=== PATIENT | male | born 1935 | race Caucasian/White ===

== ENCOUNTER 2017-08-10 12:50 | Emergency (ER) | payer MEDICARE, BC ==
[2017-08-10] MEDS ORDERED: HYDROmorphone 0.5 MG/0.5 ML Syringe IVPUSH ONE (13:24)
--- NOTE | 2017-08-10 13:53 | CT ---
Clinical history: 82-year-old male injured (fall shoveling snow). Right hip pain. Interpretation: Volume acquisition of data emergency unenhanced CT scan of the pelvis both hips and p roximal femurs obtained without oral or IV contrast were patient was lying supine on the Siemens mult i slice scanner [place], [place]. All data archived in the PACS system for storage, reformatting axial/sagittal/coronal planes and study. Interpretation: Comminuted, infratrochanteric, proximal diaphyseal fracture right femoral shaft with.... mild impaction and angulation deformity but satisfactory apposition and near anatomic alignment. No sign of other pelvic or contralateral left hip fracture. Symmetric spacing normal-appearing SI and hip joints (no hip dislocation). Dense atheromatous calcifications normal caliber distal abdominal aorta and common iliac arteries. No foreign bodies. CONCLUSION: Acute fracture proximal right femur.
[2017-08-10 14:11] LABS: CHLORIDE,CL 106 mmol/L (101-111); SODIUM,NA 141 mmol/L (135-145)
[2017-08-10] MEDS ORDERED: Ondansetron 4 MG/2 ML SDV IV ONE (14:34)
[2017-08-10] MEDS ORDERED: Morphine 2 MG/ML Syringe IVPUSH ONE (14:34)
--- NOTE | 2017-08-10 17:17 | EDM.PDOC ---
Scribed by Augusta Delgado 08/10/17 [id number] for Falguni Michel NP ED HPI GENERAL MEDICAL PROBLEM - General Chief Complaint: Trauma Stated Complaint: [id number] FELL BROKEN HIP IN BY AMBULANCE Time Seen by Provider: 08/10/17 13:12 Source of Information: Reports: Patient, EMS, EMS Notes Reviewed, RN, RN Notes Reviewed History Limitations: Reports: No Limitations - History of Present Illness INITIAL COMMENTS - FREE TEXT/NARRATIVE: Patient presents to ER with [facility] with complaint of fall while pushing snow. States he fell on the right hip. Patient denies hitting his head or losing consciousness. Admits to pain only in right hip. He rates pain a 10/20. Onset: Today Duration: Constant Location: Reports: Lower Extremity, Right Quality: Reports: Ache Severity: Moderate Improves with: Reports: None Worsens with: Reports: None Associated Symptoms: Reports: No Other Symptoms - Related Data Allergies Allergy/AdvReac Type Severity Reaction Status Date / Time No Known Allergies Allergy Verified 03/29/14 10:32 Home Meds: Home Meds Acetaminophen [Arthritis Pain Relief] 1 tab PO ASDIRECTED PRN 08/10/17 [History] Albuterol [Proair HFA] 2 puff INH Q4H PRN 08/10/17 [History] Carvedilol 1.5 tab PO BID 08/10/17 [History] Cholecalciferol (Vitamin D3) [Vitamin D3] 2 cap PO BEDTIME 08/10/17 [History] Docusate Sodium [Colace] 1 cap PO DAILY PRN 08/10/17 [History] Folic Acid 1 tab PO DAILY 08/10/17 [History] Furosemide 1 tab PO DAILY 08/10/17 [History] LORazepam 1 tab PO Q6H PRN 08/10/17 [History] Lisinopril 1 tab PO DAILY 08/10/17 [History] Lutein/Min/Vit C/Vit E Acetate [Ocuvite Lutein] 1 cap PO BEDTIME 08/10/17 [ History] Methotrexate Sodium [Methotrexate] 3 tab PO WEEKLY 08/10/17 [History] Simvastatin [Zocor] 1 tab PO BEDTIME 08/10/17 [History] Warfarin Sodium 1.25 mg PO BEDTIME 08/10/17 [History] amLODIPine [Norvasc] 1 tab PO DAILY 08/10/17 [History] Review of Systems - Review of Systems Review Of Systems: ROS reveals no pertinent complaints other than HPI. ED EXAM, GENERAL - Physical Exam Exam: See Below Exam Limited By: No Limitations General Appearance: Alert, WD/WN, No Apparent Distress Eye Exam: Bilateral Eye: Normal Inspection Ears: Normal External Exam, Normal Canal, Hearing Grossly Normal, Normal TMs Nose: Normal Inspection, Normal Mucosa, No Blood Throat/Mouth: Normal Inspection, Normal Lips, Normal Teeth, Normal Gums, Normal Oropharynx, Normal Voice, No Airway Compromise Head: Atraumatic, Normocephalic Neck: Normal Inspection, Supple, Non-Tender, Full Range of Motion Respiratory/Chest: Other (right lung diminished) Cardiovascular: Normal Peripheral Pulses, Regular Rate, Rhythm, No Edema, No Gallop, No JVD, No Murmur, No Rub GI/Abdominal: Normal Bowel Sounds, Soft, Non-Tender, No Organomegaly, No Distention, No Abnormal Bruit, No Mass (Male) Exam: Deferred Rectal (Males) Exam: Deferred Back Exam: Normal Inspection, Full Range of Motion, NT Extremities: Other (right leg tender. Limited range of motion. ) Psychiatric: Normal Affect, Normal Mood Skin Exam: Warm, Dry, Intact, Normal Color, No Rash Lymphatic: No Adenopathy Course - Vital Signs Last Recorded V/S: Last Vital Signs Temp 98.1 F 08/10/17 12:55 Pulse 51 L 08/10/17 12:55 Resp 18 08/10/17 12:55 BP 183/86 H 08/10/17 12:55 Pulse Ox 100 08/10/17 12:55 - Orders/Labs/Meds Orders: Active Orders 24 hr Category Date Time Status UA W/MICROSCOPIC [URIN] Stat Lab 08/10/17 15:30 Ordered Labs: Laboratory Tests 08/10/17 08/10/17 08/10/17 Range/Units 13:35 13:35 13:35 WBC 5.8 (5.0-10.0) 10^3/uL RBC 4.29 L (4.6-6.2) 10^6/uL Hgb 11.3 L (14.0-18.0) g/dL Hct 35.6 L (40.0-54.0) % MCV 83.0 (80-100) fL MCH 26.3 L (27.0-34.0) pg MCHC 31.7 L (33.0-35.0) g/dL Plt Count 301 (150-450) 10^3/uL Neut % (Auto) 43.5 (42.2-75.2) % Lymph % (Auto) 33.8 (20.5-50.1) % [place] % (Auto) 11.3 H (2-8) % Eos % (Auto) 11.1 H (1.0-3.0) % Baso % (Auto) 0.3 (0.0-1.0) % PT 18.3 H (9.0-12.0) SEC INR 1.8 H (0.9-1.2) Sodium 141 (135-145) mmol/L Potassium 4.3 (3.6-5.0) mmol/L Chloride 106 (101-111) mmol/L Carbon Dioxide 27.0 (21.0-31.0) mmol/L Anion Gap 12.3 BUN 18 (7-18) mg/dL Creatinine 1.2 (0.6-1.3) mg/dL Est Cr Clr Drug Dosing TNP Estimated GFR (MDRD) 58 BUN/Creatinine Ratio 15.00 Glucose 106 H (74-105) mg/dL Calcium 8.8 (8.4-10.2) mg/dl Total Bilirubin 0.5 (0.2-1.0) mg/dL AST 21 (10-42) IU/L ALT 14 (10-60) IU/L Alkaline Phosphatase 55 (42-121) IU/L Total Protein 6.7 (6.7-8.2) g/dl Albumin 3.6 (3.2-5.5) g/dl Globulin 3.1 Albumin/Globulin Ratio 1.16 Urine Color (YELLOW) Urine Appearance (CLEAR) Urine pH (5.0-9.0) Ur Specific [place] (1.005-1.030) Urine Protein (NEGATIVE) Urine Glucose (UA) (NEGATIVE) Urine Ketones (NEGATIVE) Urine Occult Blood (NEGATIVE) Urine Nitrite (NEGATIVE) Urine Bilirubin (NEGATIVE) Urine Urobilinogen (0.2-1.0) mg/dL Ur Leukocyte Esterase (NEGATIVE) Urine RBC /HPF Urine WBC (0-5/HPF) /HPF Ur Epithelial Cells /HPF Urine Bacteria (0-FEW/HPF) /HPF Hyaline Casts /LPF 08/10/17 Range/Units 15:30 WBC (5.0-10.0) 10^3/uL RBC (4.6-6.2) 10^6/uL Hgb (14.0-18.0) g/dL Hct (40.0-54.0) % MCV (80-100) fL MCH (27.0-34.0) pg MCHC (33.0-35.0) g/dL Plt Count (150-450) 10^3/uL Neut % (Auto) (42.2-75.2) % Lymph % (Auto) (20.5-50.1) % [place] % (Auto) (2-8) % Eos % (Auto) (1.0-3.0) % Baso % (Auto) (0.0-1.0) % PT (9.0-12.0) SEC INR (0.9-1.2) Sodium (135-145) mmol/L Potassium (3.6-5.0) mmol/L Chloride (101-111) mmol/L Carbon Dioxide (21.0-31.0) mmol/L Anion Gap BUN (7-18) mg/dL Creatinine (0.6-1.3) mg/dL Est Cr Clr Drug Dosing Estimated GFR (MDRD) BUN/Creatinine Ratio Glucose (74-105) mg/dL Calcium (8.4-10.2) mg/dl Total Bilirubin (0.2-1.0) mg/dL AST (10-42) IU/L ALT (10-60) IU/L Alkaline Phosphatase (42-121) IU/L Total Protein (6.7-8.2) g/dl Albumin (3.2-5.5) g/dl Globulin Albumin/Globulin Ratio Urine Color Yellow (YELLOW) Urine Appearance Slightly cloudy (CLEAR) Urine pH 7.0 (5.0-9.0) Ur Specific [place] 1.015 (1.005-1.030) Urine Protein Negative (NEGATIVE) Urine Glucose (UA) Negative (NEGATIVE) Urine Ketones Negative (NEGATIVE) Urine Occult Blood Negative (NEGATIVE) Urine Nitrite Negative (NEGATIVE) Urine Bilirubin Negative (NEGATIVE) Urine Urobilinogen 0.2 (0.2-1.0) mg/dL Ur Leukocyte Esterase Negative (NEGATIVE) Urine RBC 0-5 /HPF Urine WBC 0-5 (0-5/HPF) /HPF Ur Epithelial Cells Many H /HPF Urine Bacteria Few (0-FEW/HPF) /HPF Hyaline Casts Few H /LPF Meds: Medications Discontinued Medications Generic Name Dose Route Start Last Admin Trade Name Tristianq PRN Reason Stop Dose Admin Hydromorphone HCl 0.5 mg 08/10/17 13:24 08/10/17 13:37 Dilaudid IVPUSH 08/10/17 13:25 0.5 mg ONETIME ONE Administration Morphine Sulfate 2 mg 08/10/17 14:34 08/10/17 14:48 Morphine IVPUSH 08/10/17 14:35 2 mg ONETIME ONE Administration Ondansetron HCl 4 mg 08/10/17 14:34 08/10/17 14:48 Zofran IV 08/10/17 14:35 4 mg ONETIME ONE Administration - Radiology Interpretation Free Text/Narrative:: CT pelvis: Acute fracture proximal right femur. See rad report. - Re-Assessments/Exams Free Text/Narrative Re-Assessment/Exam: 08/10/17 17:14 One Call from [employer] called and states that Dr. Magaña would accept the patient, but that he is in the OR at this time. Departure - Departure Time of Disposition: 15:15 Disposition: DC/Tfer to [facility] 02 Condition: Fair Clinical Impression: Fracture of right femur Qualifiers: Encounter type: initial encounter Femur location: unspecified portion of femur Fracture type: closed Fracture morphology: unspecified fracture morphology Qualified Code(s): S72.91XA - Unspecified fracture of right femur, initial encounter for closed fracture - Discharge Information Referrals: PCP,None [Primary Care Provider] - Forms: ED Department Discharge, Interfacility Transfer EMTALA - My Orders Last 24 Hours: My Active Orders 08/10/17 15:30 UA W/MICROSCOPIC [URIN] Stat - Assessment/Plan Last 24 Hours: My Active Orders 08/10/17 15:30 UA W/MICROSCOPIC [URIN] Stat I have read and agree with the documentation that has been completed regarding this visit. By signing this record, I attest that the documentation was completed in my physical presence and is an accurate record of the encounter.
== END 2017-08-10 15:32 ==
LOC: DL.ED 12:50
DX: S72.141A Displaced intertrochanteric fracture of right femur, initial encounter for closed fracture (principal); Z79.899 Other long term (current) drug therapy; W00.9XXA Unspecified fall due to ice and snow, initial encounter; Y93.29 Activity, other involving ice and snow
CPT/HCPCS: 36415; 72192; 80053; 81001; 85025; 85610; 96374; 96375; 99285; J1170; J2270; J2405; 99284

== ENCOUNTER 2017-08-14 14:22 | Inpatient (IN) | payer MEDICARE, BC ==
[2017-08-15] MEDS ORDERED: Albuterol 6.7 GM Inhaler INH PRN (15:44)
--- NOTE | 2017-08-15 15:47 | PCM.HP ---
H&P History of Present Illness - General Date of Service: 08/15/17 Admit Problem/Dx: Admission Diagnosis/Problem Admission Diagnosis/Problem Hip fracture requiring operative repair Source of Information: Patient History Limitations: Reports: No Limitations - History of Present Illness Initial Comments - Free Text/Narative: The patient is a 82 y.o.malewho was admitted at [facility] 08/10/2017 5:01 PMwith right hip fracture that he sustained after a fall. His past medical history include DVT/PE, COPD, hypertension, paroxysmal atrial fibrillation. He underwent gamma nailing on 08/11/[address] Crowell. Intraoperatively, there were no complications. Postoperatively, he worked with therapy. Patient was discharged to a swing bed for further strengthening and close orthopedic follow-up. Seen at bedside, he has no compliant. Pain is controlled at this time. Onset of Symptoms: Reports: Gradual Duration of Symptoms: Reports: Hour(s): Quality: Reports: Ache Severity: Moderate Improves with: Reports: None Worsens with: Reports: None Context: Reports: Other Associated Symptoms: Reports: No Other Symptoms - Related Data Allergies/Adverse Reactions: Allergies Allergy/AdvReac Type Severity Reaction Status Date / Time No Known Allergies Allergy Verified 08/15/17 14:07 Home Medications: Home Meds Acetaminophen [Arthritis Pain Relief] 650 mg PO Q8HR PRN 08/10/17 [History] Albuterol [Proair HFA] 2 puff INH QID PRN 08/10/17 [History] Carvedilol 18.75 mg PO BID 08/10/17 [History] Cholecalciferol (Vitamin D3) [Vitamin D3] 2,000 units PO DAILY 08/10/17 [History ] Docusate Sodium [Colace] 100 mg PO BID 08/10/17 [History] Folic Acid 1 mg PO DAILY 08/10/17 [History] Furosemide 20 mg PO DAILY 08/10/17 [History] LORazepam 0.5 mg PO Q6HR PRN 08/10/17 [History] Lisinopril 10 mg PO DAILY 08/10/17 [History] Lutein/Min/Vit C/Vit E Acetate [Ocuvite Lutein] 1 cap PO DAILY 08/10/17 [History ] Methotrexate Sodium [Methotrexate] 7.5 mg PO .Saturday08/10/17 [History] Simvastatin [Zocor] 20 mg PO DAILY 08/10/17 [History] Warfarin Sodium 1.25 mg PO DAILY 08/10/17 [History] amLODIPine [Norvasc] 2.5 mg PO DAILY 08/10/17 [History] Past Medical History HEENT History: Reports: Hard of Hearing, Impaired Vision, Other (See Below) Other HEENT History: gets shots in eyes to prevent Glaucoma. Hearing aid bilat. , mostly wears to left ear. Wears glasses Cardiovascular History: Reports: Afib, Aneurysm, Blood Clots/VTE/DVT, CAD, Heart Murmur, High Cholesterol, Hypertension, Other (See Below) Other Cardiovascular History: Thoracic Aneurysm. Hx of Clots to the lung and left leg. states he has some tingling in his feet bilaterally which was present prior to hip surgery and fall. Respiratory History: Reports: COPD, Pneumonia, Recurrent, SOB Gastrointestinal History: Reports: Other (See Below) Other Gastrointestinal History: sometimes constipation and uses MOM Genitourinary History: Reports: None Musculoskeletal History: Reports: RA Neurological History: Reports: Other (See Below) Other Neuro History: "? Slight Stroke because I'm stiff on my left side" Psychiatric History: Reports: None Endocrine/Metabolic History: Reports: None Hematologic History: Reports: Anticoagulation Therapy Immunologic History: Reports: None Oncologic (Cancer) History: Reports: Other (See Below) Other Oncologic History: skin Ca to face long time ago Dermatologic History: Reports: None - Infectious Disease History Infectious Disease History: Reports: None - Past Surgical History HEENT Surgical History: Reports: Cataract Surgery, Other (See Below) Other HEENT Surgeries/Procedures: Had bilaeral cataract surgery at age 53. Cardiovascular Surgical History: Reports: None GI Surgical History: Reports: None Male Surgical History: Reports: Circumcision, Other (See Below) Other Male Surgeries/Procedures: Circumcision on August 12 2017 Endocrine Surgical History: Reports: None Neurological Surgical History: Reports: None Musculoskeletal Surgical History: Reports: None Social & Family History - Family History Family Medical History: Noncontributory Endocrine/Metabolic: Reports: Diabetes, Gestational - Tobacco Use Smoking Status *Q: Former Smoker Used Tobacco, but Quit: Yes Month/Year Tobacco Last Used: 30 - Caffeine Use Caffeine Use: Reports: Coffee, Soda - Recreational Drug Use Recreational Drug Use: No H&P Review of Systems - Review of Systems: Review Of Systems: See Below General: Reports: No Symptoms HEENT: Reports: No Symptoms Pulmonary: Reports: No Symptoms Cardiovascular: Reports: No Symptoms Gastrointestinal: Reports: No Symptoms Genitourinary: Reports: No Symptoms Musculoskeletal: Reports: No Symptoms Skin: Reports: No Symptoms Psychiatric: Reports: No Symptoms Neurological: Reports: No Symptoms Hematologic/Lymphatic: Reports: No Symptoms Immunologic: Reports: No Symptoms Exam - Exam Exam: See Below - Vital Signs Vital Signs: Last Vital Signs Temp 98 F 08/15/17 13:50 Pulse 81 08/15/17 13:50 Resp 20 08/15/17 13:50 BP 131/79 08/15/17 13:50 Pulse Ox 96 08/15/17 13:50 Weight: 199 lb - Exam Quality Assessment: Other General: Alert, Oriented, 4 HEENT: PERRLA, Hearing Intact, Mucosa Moist & [place], Nares Patent, Normal Nasal Septum, Posterior Pharynx Clear, Conjunctiva Clear, EOMI, EACs Clear, TMs Clear Neck: Supple, Trachea Midline, 2 Lungs: Clear to Auscultation, Normal Respiratory Effort Cardiovascular: Regular Rate, Regular Rhythm GI/Abdominal Exam: Normal Bowel Sounds, Soft, Non-Tender, No Organomegaly, No Distention, No Abnormal Bruit, No Mass, Pelvis Stable (Male) Exam: No Hernia, Normal Inspection, Normal Prostate, Circumcised Rectal (Males) Exam: Normal Exam, Normal Rectal Tone, Prostate Normal Back Exam: Normal Inspection, Full Range of Motion, NT Extremities: Normal Inspection, Normal Range of Motion, Non-Tender, No Pedal Edema, Normal Capillary Refill Skin: Warm, Dry, Intact Neurological: Cranial Nerves Intact, Reflexes Equal Bilateral Neuro Extensive - Mental Status: Alert, Oriented x3, Normal Mood/Affect, Normal Cognition Neuro Extensive - Motor, Sensory, Reflexes: CN II-XII Intact, Normal Gait, Normal Reflexes Psychiatric: Alert, Normal Affect, Normal Mood - Problem List (1) Fracture of right femur SNOMED Code(s): 45403832 ICD Code: S72.91XA - UNSP FRACTURE OF RIGHT FEMUR, INIT FOR CLOS FX Status : Acute Current Visit: Yes Qualifiers: Encounter type: initial encounter Femur location: unspecified portion of femur Fracture type: closed Fracture morphology: unspecified fracture morphology Qualified Code(s): S72.91XA - Unspecified fracture of right femur, initial encounter for closed fracture (2) DVT (deep venous thrombosis) SNOMED Code(s): 871220628 ICD Code: I82.409 - ACUTE EMBOLISM AND THOMBOS UNSP DEEP VN UNSP LOWER EXTREMITY Status: Acute Current Visit: Yes Problem List Initiated/Reviewed/Updated: Yes Orders Last 24hrs: Active Orders 24 hr Category Date Time Status Patient Status [ADT] Routine ADT 08/15/17 15:29 Ordered Antiembolic Devices [RC] .Routine Care 08/15/17 15:35 Ordered VTE/DVT Education [RC] PER UNIT ROUTINE Care 08/15/17 15:35 Ordered Vital Signs [RC] Q4H Care 08/15/17 15:29 Ordered Regular Diet [DIET] Diet 08/15/17 Dinner Ordered BASIC METABOLIC PANEL,BMP [CHEM] Routine Lab 08/15/17 15:29 Ordered CBC WITH AUTO DIFF [HEME] Routine Lab 08/15/17 15:29 Ordered INR,PT,PROTHROMBIN TIME [COAG] Routine Lab 08/15/17 15:29 Ordered PTT,PARTIAL THROMBOPLSTIN TIME [COAG] Routine Lab 08/15/17 15:29 Ordered Acetaminophen [Arthritis Pain Relief] Med 08/15/17 15:44 Ordered 650 mg PO Q8HR PRN Albuterol [Proventil HFA] Med 08/15/17 15:44 Ordered 2 puff INH QID PRN Carvedilol [Carvedilol] Med 08/15/17 21:00 Ordered 18.75 mg PO BID Cholecalciferol (Vitamin D3) [Vitamin D3] Med 08/16/17 09:00 Ordered 2,000 units PO DAILY Docusate Sodium [Colace] Med 08/15/17 21:00 Ordered 100 mg PO BID Folic Acid Med 08/16/17 09:00 Ordered 1 mg PO DAILY Furosemide [Lasix] Med 08/16/17 09:00 Ordered 20 mg PO DAILY Heparin Sodium Med 08/15/17 21:00 Ordered 5,000 units SUBCUT Q12HR LORazepam [Ativan] Med 08/15/17 15:44 Ordered 0.5 mg PO Q6HR PRN Lisinopril [Prinivil] Med 08/16/17 09:00 Ordered 10 mg PO DAILY Lutein/Min/Vit C/Vit E Acetate [Ocuvite Lutein] Med 08/16/17 09:00 Ordered 1 cap PO DAILY Methotrexate Med 08/15/17 15:45 Ordered 7.5 mg PO .SATURDAY Simvastatin [Zocor] Med 08/16/17 09:00 Ordered 20 mg PO DAILY Warfarin [Coumadin] Med 08/16/17 09:00 Ordered 1.25 mg PO DAILY amLODIPine [Norvasc] Med 08/16/17 09:00 Ordered 2.5 mg PO DAILY DVT/VTE Prophylaxis Reflex [OM.PC] Routine Oth 08/15/17 15:29 Ordered Resuscitation Status Routine Resus Stat 08/15/17 15:29 Ordered Assessment/Plan Comment:: Assessment/Plan #Right hip fracture following a fall -s/p gamma nailing on 08/11/17 -will continue PT/OT -Pain control #DVT/PE -On coumadine. Will continue #COPD -Stable -Continue home medications #Hypertension -BP at goal -Continue home medications #Paroxysmal atrial fibrillation -Rate control -Patient on coumadine #Full code
[2017-08-15 17:16] LABS: CHLORIDE,CL 105 mmol/L (101-111); SODIUM,NA 140 mmol/L (135-145)
[2017-08-15] MEDS: Carvedilol 6.25 MG Tab PO SCH (17:50)
[2017-08-15] MEDS: Docusate Sodium 100 MG Cap PO SCH (21:31)
[2017-08-15] MEDS: Heparin Sodium 5,000 Units/ML Vial SUBCUT SCH (21:32)
[2017-08-16] MEDS: Carvedilol 6.25 MG Tab PO SCH ×2 (08:08→17:16)
[2017-08-16] MEDS: Cholecalciferol (Vitamin D3) 400 Unit Tab PO SCH (09:31)
[2017-08-16] MEDS: amLODIPine 5 MG Tab PO SCH (09:33)
[2017-08-16] MEDS: Furosemide 20 MG Tab PO SCH (09:33)
[2017-08-16] MEDS: Folic Acid 1 MG Tab PO SCH (09:34)
[2017-08-16] MEDS: Lisinopril 10 MG Tab PO SCH (09:34)
[2017-08-16] MEDS: Lutein/Minerals/Vit A,C & E Tab PO SCH (09:34)
[2017-08-16] MEDS: Docusate Sodium 100 MG Cap PO SCH ×2 (09:34→20:44)
[2017-08-16] MEDS: Heparin Sodium 5,000 Units/ML Vial SUBCUT SCH ×2 (09:35→20:45)
[2017-08-16] MEDS: Warfarin 2.5 MG Tab PO SCH (14:12)
[2017-08-16] MEDS: Simvastatin 10 MG Tab PO SCH (20:44)
[2017-08-17] MEDS: Acetaminophen 325 MG Tab PO PRN ×2 (06:22→21:41)
[2017-08-17] MEDS: Carvedilol 6.25 MG Tab PO SCH ×2 (08:30→17:15)
[2017-08-17] MEDS: Methotrexate 2.5 MG Tab PO SCH (08:31)
[2017-08-17] MEDS: Lutein/Minerals/Vit A,C & E Tab PO SCH (09:16)
[2017-08-17] MEDS: Docusate Sodium 100 MG Cap PO SCH ×2 (09:16→21:42)
[2017-08-17] MEDS: Folic Acid 1 MG Tab PO SCH (09:17)
[2017-08-17] MEDS: amLODIPine 5 MG Tab PO SCH (09:17)
[2017-08-17] MEDS: Furosemide 20 MG Tab PO SCH (09:17)
[2017-08-17] MEDS: Lisinopril 10 MG Tab PO SCH (09:18)
[2017-08-17] MEDS: Cholecalciferol (Vitamin D3) 400 Unit Tab PO SCH (09:19)
[2017-08-17] MEDS: Heparin Sodium 5,000 Units/ML Vial SUBCUT SCH ×2 (09:20→21:39)
[2017-08-17] MEDS: Warfarin 2.5 MG Tab PO SCH (14:05)
[2017-08-17] MEDS: Simvastatin 10 MG Tab PO SCH (21:43)
[2017-08-18] MEDS: Acetaminophen 325 MG Tab PO PRN (08:26)
[2017-08-18] MEDS: Carvedilol 6.25 MG Tab PO SCH ×2 (08:28→17:55)
[2017-08-18] MEDS: Heparin Sodium 5,000 Units/ML Vial SUBCUT SCH ×2 (10:07→20:46)
[2017-08-18] MEDS: Folic Acid 1 MG Tab PO SCH (10:08)
[2017-08-18] MEDS: Docusate Sodium 100 MG Cap PO SCH ×2 (10:08→20:45)
[2017-08-18] MEDS: Furosemide 20 MG Tab PO SCH (10:09)
[2017-08-18] MEDS: Lutein/Minerals/Vit A,C & E Tab PO SCH (10:09)
[2017-08-18] MEDS: amLODIPine 5 MG Tab PO SCH (10:10)
[2017-08-18] MEDS: Lisinopril 10 MG Tab PO SCH (10:11)
[2017-08-18] MEDS: Cholecalciferol (Vitamin D3) 400 Unit Tab PO SCH (10:11)
[2017-08-18] MEDS: Warfarin 2.5 MG Tab PO SCH (13:57)
[2017-08-18] MEDS: Simvastatin 10 MG Tab PO SCH (20:45)
[2017-08-19] MEDS: amLODIPine 5 MG Tab PO SCH (08:22)
[2017-08-19] MEDS: Docusate Sodium 100 MG Cap PO SCH ×2 (08:23→21:10)
[2017-08-19] MEDS: Lutein/Minerals/Vit A,C & E Tab PO SCH (08:23)
[2017-08-19] MEDS: Cholecalciferol (Vitamin D3) 400 Unit Tab PO SCH (08:26)
[2017-08-19] MEDS: Carvedilol 6.25 MG Tab PO SCH ×2 (08:27→18:08)
[2017-08-19] MEDS: Furosemide 20 MG Tab PO SCH (08:29)
[2017-08-19] MEDS: Folic Acid 1 MG Tab PO SCH (08:29)
[2017-08-19] MEDS: Lisinopril 10 MG Tab PO SCH (08:30)
[2017-08-19] MEDS: Heparin Sodium 5,000 Units/ML Vial SUBCUT SCH ×2 (08:32→21:11)
--- NOTE | 2017-08-19 09:29 | PCM.PN ---
- General Info Date of Service: 08/19/17 Admission Dx/Problem (Free Text): Admission Diagnosis/Problem Admission Diagnosis/Problem Hip fracture requiring operative repair Subjective Update: The patient is a 82 y.o.malewho was admitted at [facility] 08/10/2017 5:01 PMwith right hip fracture that he sustained after a fall. His past medical history include DVT/PE, COPD, hypertension, paroxysmal atrial fibrillation. He underwent gamma nailing on 08/11/[address] Crowell. Intraoperatively, there were no complications. Postoperatively, he worked with therapy. Patient was discharged to a swing bed for further strengthening and close orthopedic follow-up. No over night event. Functional Status: Reports: Pain Controlled - Review of Systems General: Reports: No Symptoms HEENT: Reports: No Symptoms Pulmonary: Reports: No Symptoms Cardiovascular: Reports: No Symptoms Gastrointestinal: Reports: No Symptoms Genitourinary: Reports: No Symptoms Musculoskeletal: Reports: No Symptoms Skin: Reports: No Symptoms Neurological: Reports: No Symptoms Psychiatric: Reports: No Symptoms - Patient Data Vitals - Most Recent: Last Vital Signs Temp 98.4 F 08/19/17 06:51 Pulse 66 08/19/17 08:27 Resp 20 08/19/17 06:51 BP 126/95 H 08/19/17 08:30 Pulse Ox 95 08/19/17 06:51 Weight - Most Recent: 199 lb I&O - Last 24 Hours: Intake & Output 08/18/17 08/19/17 08/19/17 22:59 06:59 14:59 Intake Total 240 300 Output Total 675 Balance 240 -375 Med Orders - Current: Current Medications Acetaminophen (Tylenol) 650 mg PO Q8HR PRN PRN Reason: Pain Last Admin: 08/18/17 08:26 Dose: 650 mg Albuterol (Proventil Hfa) 0 gm INH QID PRN PRN Reason: breathing Amlodipine Besylate (Norvasc) 2.5 mg PO DAILY [facility] Last Admin: 08/19/17 08:22 Dose: 2.5 mg Carvedilol (Coreg) 18.75 mg PO BIDMEALS [facility] Last Admin: 08/19/17 08:27 Dose: 18.75 mg Cholecalciferol (Vitamin D3) 2,000 units PO DAILY [facility] Last Admin: 08/19/17 08:26 Dose: 2,000 units Docusate Sodium (Colace) 100 mg PO BID [facility] Last Admin: 08/19/17 08:23 Dose: 100 mg Folic Acid (Folic Acid) 1 mg PO DAILY [facility] Last Admin: 08/19/17 08:29 Dose: 1 mg Furosemide (Lasix) 20 mg PO DAILY [facility] Last Admin: 08/19/17 08:29 Dose: 20 mg Heparin Sodium (Porcine) (Heparin Sodium) 5,000 units SUBCUT Q12HR [facility] Last Admin: 08/19/17 08:32 Dose: 5,000 units Lisinopril (Prinivil) 10 mg PO DAILY [facility] Last Admin: 08/19/17 08:30 Dose: 10 mg Lorazepam (Ativan) 0.5 mg PO Q6HR PRN PRN Reason: Anxiety Methotrexate (Methotrexate) 7.5 mg PO Sa@0800 [facility] Last Admin: 08/17/17 08:31 Dose: 7.5 mg Multivitamins/Minerals (I-Anoop) 1 each PO DAILY [facility] Last Admin: 08/19/17 08:23 Dose: 1 each Simvastatin (Zocor) 20 mg PO BEDTIME [facility] Last Admin: 08/18/17 20:45 Dose: 20 mg Warfarin Sodium (Coumadin) 1.25 mg PO DAILY@1400 [facility] Last Admin: 08/18/17 13:57 Dose: 1.25 mg - Exam General: Alert, Oriented HEENT: Pupils Equal, Pupils Reactive, EOMI, Mucous Membr. Moist/[place] Neck: Supple Lungs: Clear to Auscultation, Normal Respiratory Effort Cardiovascular: Regular Rate, Regular Rhythm GI/Abdominal Exam: Normal Bowel Sounds, Soft, Non-Tender, No Organomegaly, No Distention, No Abnormal Bruit, No Mass, Pelvis Stable (Male) Exam: No Hernia, Normal Inspection, Normal Prostate, Circumcised Back Exam: Normal Inspection, Full Range of Motion Extremities: Normal Inspection, Normal Range of Motion, Non-Tender, No Pedal Edema, Normal Capillary Refill Skin: Warm, Dry, Intact Wound/Incisions: Healing Well Neurological: No New Focal Deficit Psy/Mental Status: Alert, Normal Affect, Normal Mood - Problem List & Annotations (1) Fracture of right femur SNOMED Code(s): 53920125 Code(s): S72.91XA - UNSP FRACTURE OF RIGHT FEMUR, INIT FOR CLOS FX Status: Acute Current Visit: Yes Qualifiers: Encounter type: initial encounter Femur location: unspecified portion of femur Fracture type: closed Fracture morphology: unspecified fracture morphology Qualified Code(s): S72.91XA - Unspecified fracture of right femur, initial encounter for closed fracture (2) DVT (deep venous thrombosis) SNOMED Code(s): 118043023 Code(s): I82.409 - ACUTE EMBOLISM AND THOMBOS UNSP DEEP VN UNSP LOWER EXTREMITY Status: Acute Current Visit: Yes - Problem List Review Problem List Initiated/Reviewed/Updated: Yes - Plan Plan:: Assessment/Plan #Right hip fracture following a fall -s/p gamma nailing on 08/11/17 -will continue PT/OT -Pain control #DVT/PE -On coumadine. Will continue -Pharmacy to dose -Daily INR #COPD -Stable -Continue home medications #Hypertension -BP at goal -Continue home medications #Paroxysmal atrial fibrillation -Rate control -Patient on coumadine #Full code
[2017-08-19] MEDS: ACETAMINOPHEN 650 MG PO PRN ×2 (13:09→21:16)
[2017-08-19] MEDS ORDERED: Warfarin 5 MG Tab PO ONE (14:00)
[2017-08-19] MEDS: Simvastatin 10 MG Tab PO SCH (21:10)
[2017-08-20] MEDS: ACETAMINOPHEN 650 MG PO PRN ×2 (05:16→16:21)
[2017-08-20] MEDS: Carvedilol 6.25 MG Tab PO SCH ×2 (09:09→17:59)
[2017-08-20] MEDS: amLODIPine 5 MG Tab PO SCH (09:10)
[2017-08-20] MEDS: Lisinopril 10 MG Tab PO SCH (09:11)
[2017-08-20] MEDS: Folic Acid 1 MG Tab PO SCH (09:11)
[2017-08-20] MEDS: Lutein/Minerals/Vit A,C & E Tab PO SCH (09:11)
[2017-08-20] MEDS: Docusate Sodium 100 MG Cap PO SCH ×2 (09:12→21:06)
[2017-08-20] MEDS: Cholecalciferol (Vitamin D3) 400 Unit Tab PO SCH (09:12)
[2017-08-20] MEDS: Furosemide 20 MG Tab PO SCH (09:12)
[2017-08-20] MEDS: Heparin Sodium 5,000 Units/ML Vial SUBCUT SCH ×2 (09:13→21:06)
[2017-08-20] MEDS ORDERED: Warfarin 5 MG Tab PO ONE (14:00)
[2017-08-20] MEDS: Simvastatin 10 MG Tab PO SCH (21:05)
[2017-08-21] MEDS: ACETAMINOPHEN 650 MG PO PRN ×3 (06:06→22:42)
[2017-08-21] MEDS: Carvedilol 6.25 MG Tab PO SCH ×2 (09:05→17:46)
[2017-08-21] MEDS: Folic Acid 1 MG Tab PO SCH (09:05)
[2017-08-21] MEDS: Cholecalciferol (Vitamin D3) 400 Unit Tab PO SCH (09:06)
[2017-08-21] MEDS: Lutein/Minerals/Vit A,C & E Tab PO SCH (09:06)
[2017-08-21] MEDS: Heparin Sodium 5,000 Units/ML Vial SUBCUT SCH (09:07)
[2017-08-21] MEDS: Furosemide 20 MG Tab PO SCH (09:08)
[2017-08-21] MEDS: amLODIPine 5 MG Tab PO SCH (09:08)
[2017-08-21] MEDS: Lisinopril 10 MG Tab PO SCH (09:09)
[2017-08-21] MEDS: Docusate Sodium 100 MG Cap PO SCH ×3 (09:19→20:50)
[2017-08-21] MEDS ORDERED: Warfarin 5 MG Tab PO ONE (14:00)
[2017-08-21] MEDS: Simvastatin 10 MG Tab PO SCH (20:47)
[2017-08-22] MEDS: Folic Acid 1 MG Tab PO SCH (09:00)
[2017-08-22] MEDS: Docusate Sodium 100 MG Cap PO SCH ×2 (09:00→20:17)
[2017-08-22] MEDS: Carvedilol 6.25 MG Tab PO SCH ×2 (09:00→18:00)
[2017-08-22] MEDS: Lutein/Minerals/Vit A,C & E Tab PO SCH (09:00)
[2017-08-22] MEDS: Furosemide 20 MG Tab PO SCH (09:01)
[2017-08-22] MEDS: amLODIPine 5 MG Tab PO SCH (09:01)
[2017-08-22] MEDS: Cholecalciferol (Vitamin D3) 400 Unit Tab PO SCH (09:01)
[2017-08-22] MEDS: Lisinopril 10 MG Tab PO SCH (09:01)
[2017-08-22] MEDS: ACETAMINOPHEN 650 MG PO PRN ×2 (12:53→20:18)
[2017-08-22] MEDS ORDERED: Non-Formulary Medication 1 Each PO ONE (14:00)
[2017-08-22] MEDS: Simvastatin 10 MG Tab PO SCH (20:17)
[2017-08-23] MEDS: ACETAMINOPHEN 650 MG PO PRN ×2 (07:22→17:41)
[2017-08-23] MEDS: Carvedilol 6.25 MG Tab PO SCH ×2 (08:54→17:40)
[2017-08-23] MEDS: Lutein/Minerals/Vit A,C & E Tab PO SCH (08:55)
[2017-08-23] MEDS: Docusate Sodium 100 MG Cap PO SCH ×2 (08:55→20:55)
[2017-08-23] MEDS: amLODIPine 5 MG Tab PO SCH (08:56)
[2017-08-23] MEDS: Folic Acid 1 MG Tab PO SCH (08:56)
[2017-08-23] MEDS: Furosemide 20 MG Tab PO SCH (08:56)
[2017-08-23] MEDS: Lisinopril 10 MG Tab PO SCH (08:57)
[2017-08-23] MEDS: Cholecalciferol (Vitamin D3) 400 Unit Tab PO SCH (08:57)
[2017-08-23] MEDS: Simvastatin 10 MG Tab PO SCH (20:55)
[2017-08-24] MEDS: ACETAMINOPHEN 650 MG PO PRN ×2 (05:09→17:13)
[2017-08-24] MEDS: Carvedilol 6.25 MG Tab PO SCH ×2 (09:17→17:14)
[2017-08-24] MEDS: Cholecalciferol (Vitamin D3) 400 Unit Tab PO SCH (09:22)
[2017-08-24] MEDS: Folic Acid 1 MG Tab PO SCH (09:24)
[2017-08-24] MEDS: Lisinopril 10 MG Tab PO SCH (09:24)
[2017-08-24] MEDS: Lutein/Minerals/Vit A,C & E Tab PO SCH (09:25)
[2017-08-24] MEDS: Furosemide 20 MG Tab PO SCH (09:25)
[2017-08-24] MEDS: Docusate Sodium 100 MG Cap PO SCH ×2 (09:25→20:42)
[2017-08-24] MEDS: amLODIPine 5 MG Tab PO SCH (09:33)
[2017-08-24] MEDS: Methotrexate 2.5 MG Tab PO SCH (09:34)
[2017-08-24] MEDS: Simvastatin 10 MG Tab PO SCH (20:42)
[2017-08-25] MEDS: ACETAMINOPHEN 650 MG PO PRN ×2 (06:17→15:15)
[2017-08-25] MEDS: Carvedilol 6.25 MG Tab PO SCH ×2 (08:54→17:14)
[2017-08-25] MEDS: Cholecalciferol (Vitamin D3) 400 Unit Tab PO SCH (08:54)
[2017-08-25] MEDS: Furosemide 20 MG Tab PO SCH (08:55)
[2017-08-25] MEDS: Lutein/Minerals/Vit A,C & E Tab PO SCH (08:55)
[2017-08-25] MEDS: amLODIPine 5 MG Tab PO SCH (08:55)
[2017-08-25] MEDS: Folic Acid 1 MG Tab PO SCH (08:55)
[2017-08-25] MEDS: Docusate Sodium 100 MG Cap PO SCH ×2 (08:55→21:41)
[2017-08-25] MEDS: Lisinopril 10 MG Tab PO SCH (08:55)
[2017-08-25] MEDS ORDERED: Warfarin 2.5 MG Tab PO SCH (14:00)
[2017-08-25] MEDS: Simvastatin 10 MG Tab PO SCH (21:41)
[2017-08-26] MEDS: ACETAMINOPHEN 650 MG PO PRN ×2 (05:18→21:20)
[2017-08-26] MEDS: Carvedilol 6.25 MG Tab PO SCH ×2 (07:57→17:43)
[2017-08-26] MEDS: Lisinopril 10 MG Tab PO SCH (08:01)
[2017-08-26] MEDS: Lutein/Minerals/Vit A,C & E Tab PO SCH (08:01)
[2017-08-26] MEDS: amLODIPine 5 MG Tab PO SCH (08:01)
[2017-08-26] MEDS: Docusate Sodium 100 MG Cap PO SCH ×2 (08:03→21:20)
[2017-08-26] MEDS: Cholecalciferol (Vitamin D3) 400 Unit Tab PO SCH (08:03)
[2017-08-26] MEDS: Folic Acid 1 MG Tab PO SCH (08:03)
[2017-08-26] MEDS: Furosemide 20 MG Tab PO SCH (08:03)
[2017-08-26] MEDS ORDERED: Warfarin 2.5 MG Tab PO ONE (14:00)
[2017-08-26] MEDS: Finasteride 5 MG Tab PO SCH (21:20)
[2017-08-26] MEDS: Simvastatin 10 MG Tab PO SCH (21:20)
[2017-08-26] MEDS: Tamsulosin 0.4 MG Cap.ER PO SCH (21:20)
[2017-08-27] MEDS: ACETAMINOPHEN 650 MG PO PRN ×3 (07:05→21:37)
[2017-08-27] MEDS: Cholecalciferol (Vitamin D3) 400 Unit Tab PO SCH (09:10)
[2017-08-27] MEDS: amLODIPine 5 MG Tab PO SCH (09:10)
[2017-08-27] MEDS: Carvedilol 6.25 MG Tab PO SCH ×2 (09:12→17:55)
[2017-08-27] MEDS: Lisinopril 10 MG Tab PO SCH (09:14)
[2017-08-27] MEDS: Folic Acid 1 MG Tab PO SCH (09:15)
[2017-08-27] MEDS: Furosemide 20 MG Tab PO SCH (09:15)
[2017-08-27] MEDS: Lutein/Minerals/Vit A,C & E Tab PO SCH (09:16)
[2017-08-27] MEDS: Polyethylene Glycol 3350 Powder 17 GM Packet PO SCH (09:16)
[2017-08-27] MEDS: Docusate Sodium 100 MG Cap PO SCH ×2 (09:20→20:39)
[2017-08-27] MEDS ORDERED: Warfarin 2.5 MG Tab PO ONE (14:00)
[2017-08-27] MEDS: Finasteride 5 MG Tab PO SCH (20:40)
[2017-08-27] MEDS: Simvastatin 10 MG Tab PO SCH (20:40)
[2017-08-27] MEDS: Tamsulosin 0.4 MG Cap.ER PO SCH (20:40)
[2017-08-28] MEDS: ACETAMINOPHEN 650 MG PO PRN ×3 (07:41→21:25)
[2017-08-28] MEDS: Carvedilol 6.25 MG Tab PO SCH ×2 (08:36→17:16)
[2017-08-28] MEDS: Polyethylene Glycol 3350 Powder 17 GM Packet PO SCH (08:36)
[2017-08-28] MEDS: Lisinopril 10 MG Tab PO SCH (08:37)
[2017-08-28] MEDS: Cholecalciferol (Vitamin D3) 400 Unit Tab PO SCH (08:37)
[2017-08-28] MEDS: Lutein/Minerals/Vit A,C & E Tab PO SCH (08:37)
[2017-08-28] MEDS: amLODIPine 5 MG Tab PO SCH (08:37)
[2017-08-28] MEDS: Folic Acid 1 MG Tab PO SCH (08:38)
[2017-08-28] MEDS: Docusate Sodium 100 MG Cap PO SCH ×2 (08:38→21:24)
[2017-08-28] MEDS: Furosemide 20 MG Tab PO SCH (08:38)
--- NOTE | 2017-08-28 10:50 | PCM.PN ---
- General Info Date of Service: 08/28/17 Admission Dx/Problem (Free Text): Admission Diagnosis/Problem Admission Diagnosis/Problem Hip fracture requiring operative repair Subjective Update: 82 y.o.malewith past medical history of DVT, pulmonary embolism, essential hypertension, paroxysmal atrial fibrillation who was admitted at [facility] 08/10/2017 to swing bed with right hip fracture that he sustained after a fall, to have physical therapy for further strengthening and close orthopedic follow-up. He underwent gamma nailing on 08/11/[address] Crowell. No intraoperatively complications reported. Patient denies any new symptoms. He says he is able to get up by himself using the walker. His sat right hip pain is controlled. He denies any swelling, redness around his incision. He has some constipation which resolved with stool softener. Last bowel movement was yesterday. He denies fever, chills, nausea, vomiting, abdominal pain, chest pain, shortness breath, urinary symptoms, unilateral weakness/numbness/tingling, any other symptoms or concern. - Patient Data Vitals - Most Recent: Last Vital Signs Temp 36.8 C 08/28/17 07:32 Pulse 64 08/28/17 08:36 Resp 20 08/28/17 07:32 BP 122/83 08/28/17 08:37 Pulse Ox 96 08/28/17 07:32 Weight - Most Recent: 90.446 kg I&O - Last 24 Hours: Intake & Output 08/27/17 08/28/17 08/28/17 22:59 06:59 14:59 Intake Total 240 250 Output Total 1050 380 Balance -810 -380 250 Lab Results Last 24 Hours: Laboratory Results - last 24 hr 08/28/17 Range/Units 06:15 PT 31.7 H (9.0-12.0) SEC INR 3.1 H (0.9-1.2) Med Orders - Current: Current Medications Albuterol (Proventil Hfa) 0 gm INH QID PRN PRN Reason: breathing Amlodipine Besylate (Norvasc) 2.5 mg PO DAILY [facility] Last Admin: 08/28/17 08:37 Dose: 2.5 mg Carvedilol (Coreg) 18.75 mg PO BIDMEALS [facility] Last Admin: 08/28/17 08:36 Dose: 18.75 mg Cholecalciferol (Vitamin D3) 2,000 units PO DAILY [facility] Last Admin: 08/28/17 08:37 Dose: 2,000 units Docusate Sodium (Colace) 100 mg PO BID [facility] Last Admin: 08/28/17 08:38 Dose: 100 mg Finasteride (Proscar) 5 mg PO BEDTIME [facility] Last Admin: 08/27/17 20:40 Dose: 5 mg Folic Acid (Folic Acid) 1 mg PO DAILY [facility] Last Admin: 08/28/17 08:38 Dose: 1 mg Furosemide (Lasix) 20 mg PO DAILY [facility] Last Admin: 08/28/17 08:38 Dose: 20 mg Lisinopril (Prinivil) 10 mg PO DAILY [facility] Last Admin: 08/28/17 08:37 Dose: 10 mg Lorazepam (Ativan) 0.5 mg PO Q6HR PRN PRN Reason: Anxiety Methotrexate (Methotrexate) 7.5 mg PO Sa@0800 [facility] Last Admin: 08/24/17 09:34 Dose: 7.5 mg Multivitamins/Minerals (I-Anoop) 1 each PO DAILY [facility] Last Admin: 08/28/17 08:37 Dose: 1 each Acetaminophen 650 Mg Er TabPt's Own Med 0 each PO Q8HR PRN PRN Reason: Pain Last Admin: 08/28/17 07:41 Dose: 1 each Polyethylene Glycol (Miralax) 17 gm PO DAILY [facility] Last Admin: 08/28/17 08:36 Dose: 17 gm Simvastatin (Zocor) 20 mg PO BEDTIME [facility] Last Admin: 08/27/17 20:40 Dose: 20 mg Tamsulosin HCl (Flomax) 0.4 mg PO BEDTIME [facility] Last Admin: 08/27/17 20:40 Dose: 0.4 mg Warfarin Sodium (Pharmacy To Dose - Warfarin) 1 dose .XX ASDIRECTED [facility] Discontinued Medications Acetaminophen (Tylenol) 650 mg PO Q8HR PRN PRN Reason: Pain Last Admin: 08/18/17 08:26 Dose: 650 mg Heparin Sodium (Porcine) (Heparin Sodium) 5,000 units SUBCUT Q12HR [facility] Last Admin: 08/21/17 09:07 Dose: Not Given Non-Formulary Medication (Nf Drug) 0 each PO ONETIME ONE Stop: 08/22/17 14:01 Last Admin: 08/22/17 14:03 Dose: Not Given Warfarin Sodium (Coumadin) 1.25 mg PO DAILY@1400 [facility] Last Admin: 08/18/17 13:57 Dose: 1.25 mg Warfarin Sodium (Coumadin) 5 mg PO ONETIME ONE Stop: 08/19/17 14:01 Last Admin: 08/19/17 13:09 Dose: 5 mg Warfarin Sodium (Coumadin) 5 mg PO ONETIME ONE Stop: 08/20/17 14:01 Last Admin: 08/20/17 13:53 Dose: 5 mg Warfarin Sodium (Coumadin) 5 mg PO ONETIME ONE Stop: 08/21/17 14:01 Last Admin: 08/21/17 13:58 Dose: 5 mg Warfarin Sodium (Coumadin) 2.5 mg PO DAILY@1400 [facility] Stop: 08/25/17 14:01 Last Admin: 08/25/17 16:51 Dose: 2.5 mg Warfarin Sodium (Coumadin) 2.5 mg PO ONETIME ONE Stop: 08/26/17 14:01 Last Admin: 08/26/17 15:32 Dose: 2.5 mg Warfarin Sodium (Coumadin) 2.5 mg PO ONETIME ONE Stop: 08/27/17 14:01 Last Admin: 08/27/17 13:41 Dose: 2.5 mg - Exam General: Alert, Oriented, Cooperative, No Acute Distress. No: Mild Distress, Moderate Distress, Severe Distress, Sedated, Lethargic HEENT: Pupils Equal, Pupils Reactive, EOMI, Mucous Membr. Moist/[place] Neck: Supple, Trachea Midline, No JVD Lungs: Clear to Auscultation, Normal Respiratory Effort Cardiovascular: Regular Rate, Regular Rhythm GI/Abdominal Exam: Normal Bowel Sounds, Soft, Non-Tender, No Organomegaly, No Distention, No Abnormal Bruit (Male) Exam: Deferred Back Exam: Normal Inspection, Full Range of Motion. No: CVA Tenderness (L), CVA Tenderness (R) Extremities: Normal Inspection, Normal Range of Motion, Non-Tender, No Pedal Edema, Normal Capillary Refill, Other (Right hip incision is healing appropriately. No signs of infection or hematoma) Skin: Warm, Dry, Intact Neurological: No New Focal Deficit Psy/Mental Status: Alert, Normal Affect, Normal Mood - Problem List Review Problem List Initiated/Reviewed/Updated: Yes - Plan Plan:: Assessment/Plan 82 y.o.malewith past medical history of DVT, pulmonary embolism, essential hypertension, paroxysmal atrial fibrillation who was admitted at [facility] 08/10/2017 to swing bed with right hip fracture that he sustained after a fall, to have physical therapy for further strengthening and close orthopedic follow-up. Patient is doing well with physical therapy #Right hip fracture following a fall -s/p gamma nailing on 08/11/17 -continue PT/OT -Pain control as per ordered #DVT/pulmonary embolism -On coumadine. -continue warfarin, Pharmacy to dose -Daily INR #COPD -Stable -Continue home medications #Hypertension -BPWell-controlled -Continue home medications #Paroxysmal atrial fibrillation -Rate control -Patient on coumadine #Full code DVT prophylaxis: He is on warfarin, no need for additional prophylaxis
[2017-08-28] MEDS: Tamsulosin 0.4 MG Cap.ER PO SCH (21:24)
[2017-08-28] MEDS: Finasteride 5 MG Tab PO SCH (21:24)
[2017-08-28] MEDS: Simvastatin 10 MG Tab PO SCH (21:24)
[2017-08-29] MEDS: ACETAMINOPHEN 650 MG PO PRN ×3 (06:35→21:09)
[2017-08-29] MEDS: Polyethylene Glycol 3350 Powder 17 GM Packet PO SCH (08:46)
[2017-08-29] MEDS: Folic Acid 1 MG Tab PO SCH (08:47)
[2017-08-29] MEDS: Lisinopril 10 MG Tab PO SCH (08:47)
[2017-08-29] MEDS: Cholecalciferol (Vitamin D3) 400 Unit Tab PO SCH (08:47)
[2017-08-29] MEDS: amLODIPine 5 MG Tab PO SCH (08:48)
[2017-08-29] MEDS: Furosemide 20 MG Tab PO SCH (08:48)
[2017-08-29] MEDS: Lutein/Minerals/Vit A,C & E Tab PO SCH (08:48)
[2017-08-29] MEDS: Carvedilol 6.25 MG Tab PO SCH ×2 (08:48→17:22)
[2017-08-29] MEDS: Docusate Sodium 100 MG Cap PO SCH ×2 (08:48→21:05)
[2017-08-29] MEDS: Tamsulosin 0.4 MG Cap.ER PO SCH (21:05)
[2017-08-29] MEDS: Simvastatin 10 MG Tab PO SCH (21:05)
[2017-08-29] MEDS: Finasteride 5 MG Tab PO SCH (21:05)
[2017-08-30] MEDS: ACETAMINOPHEN 650 MG PO PRN ×2 (06:09→20:51)
[2017-08-30] MEDS: Furosemide 20 MG Tab PO SCH (08:19)
[2017-08-30] MEDS: Lutein/Minerals/Vit A,C & E Tab PO SCH (08:19)
[2017-08-30] MEDS: Carvedilol 6.25 MG Tab PO SCH ×2 (08:19→17:45)
[2017-08-30] MEDS: Cholecalciferol (Vitamin D3) 400 Unit Tab PO SCH (08:19)
[2017-08-30] MEDS: Polyethylene Glycol 3350 Powder 17 GM Packet PO SCH (08:19)
[2017-08-30] MEDS: Folic Acid 1 MG Tab PO SCH (08:20)
[2017-08-30] MEDS: amLODIPine 5 MG Tab PO SCH (08:20)
[2017-08-30] MEDS: Lisinopril 10 MG Tab PO SCH (08:20)
[2017-08-30] MEDS: Docusate Sodium 100 MG Cap PO SCH ×2 (08:20→20:43)
[2017-08-30] MEDS: Simvastatin 10 MG Tab PO SCH (20:43)
[2017-08-30] MEDS: Tamsulosin 0.4 MG Cap.ER PO SCH (20:43)
[2017-08-30] MEDS: Finasteride 5 MG Tab PO SCH (20:43)
[2017-08-30] MEDS: Carboxymethylcellulose Sodium 1% Ophth Gel 0.4 ML UD EYELF SCH (23:22)
[2017-08-31] MEDS: Carboxymethylcellulose Sodium 1% Ophth Gel 0.4 ML UD EYELF SCH ×10 (01:20→21:26)
[2017-08-31] MEDS: Cholecalciferol (Vitamin D3) 400 Unit Tab PO SCH (08:42)
[2017-08-31] MEDS: Lutein/Minerals/Vit A,C & E Tab PO SCH (08:42)
[2017-08-31] MEDS: Furosemide 20 MG Tab PO SCH (08:42)
[2017-08-31] MEDS: Polyethylene Glycol 3350 Powder 17 GM Packet PO SCH (08:42)
[2017-08-31] MEDS: Folic Acid 1 MG Tab PO SCH (08:42)
[2017-08-31] MEDS: Docusate Sodium 100 MG Cap PO SCH ×2 (08:42→21:25)
[2017-08-31] MEDS: Carvedilol 6.25 MG Tab PO SCH ×2 (08:42→17:42)
[2017-08-31] MEDS: amLODIPine 5 MG Tab PO SCH (08:43)
[2017-08-31] MEDS: Methotrexate 2.5 MG Tab PO SCH (08:43)
[2017-08-31] MEDS: Lisinopril 10 MG Tab PO SCH (08:43)
[2017-08-31] MEDS: ACETAMINOPHEN 650 MG PO PRN ×2 (08:44→17:43)
[2017-08-31] MEDS: Simvastatin 10 MG Tab PO SCH (21:25)
[2017-08-31] MEDS: Tamsulosin 0.4 MG Cap.ER PO SCH (21:25)
[2017-08-31] MEDS: Finasteride 5 MG Tab PO SCH (21:25)
[2017-09-01] MEDS: Carboxymethylcellulose Sodium 1% Ophth Gel 0.4 ML UD EYELF SCH ×11 (00:41→20:45)
[2017-09-01] MEDS: ACETAMINOPHEN 650 MG PO PRN ×3 (02:44→20:46)
[2017-09-01] MEDS: Polyethylene Glycol 3350 Powder 17 GM Packet PO SCH (08:59)
[2017-09-01] MEDS: Cholecalciferol (Vitamin D3) 400 Unit Tab PO SCH (09:00)
[2017-09-01] MEDS: amLODIPine 5 MG Tab PO SCH (09:01)
[2017-09-01] MEDS: Furosemide 20 MG Tab PO SCH (09:02)
[2017-09-01] MEDS: Carvedilol 6.25 MG Tab PO SCH ×2 (09:03→17:40)
[2017-09-01] MEDS: Folic Acid 1 MG Tab PO SCH (09:03)
[2017-09-01] MEDS: Lutein/Minerals/Vit A,C & E Tab PO SCH (09:03)
[2017-09-01] MEDS: Lisinopril 10 MG Tab PO SCH (09:04)
[2017-09-01] MEDS: Docusate Sodium 100 MG Cap PO SCH ×2 (09:04→20:46)
[2017-09-01] MEDS: Tamsulosin 0.4 MG Cap.ER PO SCH (20:45)
[2017-09-01] MEDS: Simvastatin 10 MG Tab PO SCH (20:45)
[2017-09-01] MEDS: Finasteride 5 MG Tab PO SCH (20:46)
[2017-09-01] MEDS: LORazepam 0.5 MG Tab PO PRN (21:02)
[2017-09-02] MEDS: Carboxymethylcellulose Sodium 1% Ophth Gel 0.4 ML UD EYELF SCH (00:04)
[2017-09-02 06:59] LABS: CHLORIDE,CL 105 mmol/L (101-111); SODIUM,NA 137 mmol/L (135-145)
[2017-09-02] MEDS: Polyethylene Glycol 3350 Powder 17 GM Packet PO SCH (08:54)
[2017-09-02] MEDS: Docusate Sodium 100 MG Cap PO SCH ×2 (08:56→21:38)
[2017-09-02] MEDS: Furosemide 20 MG Tab PO SCH (08:56)
[2017-09-02] MEDS: Lutein/Minerals/Vit A,C & E Tab PO SCH (08:56)
[2017-09-02] MEDS: Folic Acid 1 MG Tab PO SCH (08:56)
[2017-09-02] MEDS: Cholecalciferol (Vitamin D3) 400 Unit Tab PO SCH (08:57)
[2017-09-02] MEDS: ACETAMINOPHEN 650 MG PO PRN ×2 (08:58→21:39)
[2017-09-02] MEDS: Carvedilol 6.25 MG Tab PO SCH ×2 (09:10→17:59)
[2017-09-02] MEDS: amLODIPine 5 MG Tab PO SCH (09:11)
[2017-09-02] MEDS: Lisinopril 10 MG Tab PO SCH (09:12)
[2017-09-02] MEDS: Finasteride 5 MG Tab PO SCH (21:38)
[2017-09-02] MEDS: Tamsulosin 0.4 MG Cap.ER PO SCH (21:38)
[2017-09-02] MEDS: LORazepam 0.5 MG Tab PO PRN (21:39)
[2017-09-02] MEDS: Simvastatin 10 MG Tab PO SCH (21:39)
[2017-09-03] MEDS: ACETAMINOPHEN 650 MG PO PRN (08:03)
[2017-09-03] MEDS: Lutein/Minerals/Vit A,C & E Tab PO SCH (09:17)
[2017-09-03] MEDS: Cholecalciferol (Vitamin D3) 400 Unit Tab PO SCH (09:17)
[2017-09-03] MEDS: Lisinopril 10 MG Tab PO SCH (09:17)
--- NOTE | 2017-09-03 09:17 | PCM.DCSUM1 ---
Discharge Summary - Hospital Course Free Text/Narrative:: 82 y.o.malewith past medical history of DVT, pulmonary embolism, essential hypertension, paroxysmal atrial fibrillation He sustained right hip fracture after a fall, He was admitted to swing bed to have physical therapy for further strengthening Patient did well with physical therapy #Right hip fracture following a fall -s/p gamma nailing on 08/11/17 -did well with PT/OT #COPD -Stable #Hypertension -controlled -Continue coreg, norvasc #Paroxysmal atrial fibrillation -Rate controlled with coreg -Patient on coumadin chec INR baldemar few days as outpt - Discharge Data Discharge Date: 09/03/17 Discharge Disposition: Home, Self-Care 01 Condition: Good - Discharge Diagnosis/Problem(s) (1) Weakness SNOMED Code(s): 62102885 ICD Code: R53.1 - WEAKNESS Status: Acute Current Visit: Yes (2) Fracture of right femur SNOMED Code(s): 24276364 ICD Code: S72.91XA - UNSP FRACTURE OF RIGHT FEMUR, INIT FOR CLOS FX Status : Acute Current Visit: Yes Qualifiers: Encounter type: initial encounter Femur location: unspecified portion of femur Fracture type: closed Fracture morphology: unspecified fracture morphology Qualified Code(s): S72.91XA - Unspecified fracture of right femur, initial encounter for closed fracture - Patient Summary/Data Consults: Consultations 08/15/17 16:07 OT Evaluation and Treatment [CONS] Routine PT Evaluation and Treatment [CONS] Routine - Patient Instructions Diet: Heart Healthy Diet Activity: As Tolerated - Discharge Plan Prescriptions/Med Rec: Tamsulosin [Flomax] 0.4 mg PO BEDTIME #30 cap.er Home Medications: Home Meds Acetaminophen [Arthritis Pain Relief] 650 mg PO Q8HR PRN 08/10/17 [History] Albuterol [Proair HFA] 2 puff INH QID PRN 08/10/17 [History] Carvedilol 18.75 mg PO BID 08/10/17 [History] Cholecalciferol (Vitamin D3) [Vitamin D3] 2,000 units PO DAILY 08/10/17 [History ] Docusate Sodium [Colace] 100 mg PO BID 08/10/17 [History] Folic Acid 1 mg PO DAILY 08/10/17 [History] Furosemide 20 mg PO DAILY 08/10/17 [History] LORazepam 0.5 mg PO Q6HR PRN 08/10/17 [History] Lisinopril 10 mg PO DAILY 08/10/17 [History] Lutein/Min/Vit C/Vit E Acetate [Ocuvite Lutein] 1 cap PO DAILY 08/10/17 [History ] Methotrexate Sodium [Methotrexate] 7.5 mg PO .Saturday08/10/17 [History] Simvastatin [Zocor] 20 mg PO DAILY 08/10/17 [History] Warfarin Sodium 1.25 mg PO DAILY 08/10/17 [History] amLODIPine [Norvasc] 2.5 mg PO DAILY 08/10/17 [History] oxyCODONE 5 mg PO Q4HR PRN 08/15/17 [History] Tamsulosin [Flomax] 0.4 mg PO BEDTIME #30 cap.er 09/03/17 [Rx] - Discharge Summary/Plan Comment DC Time >30 min.: No - General Info Date of Service: 09/03/17 Functional Status: Reports: Pain Controlled - Review of Systems General: Denies: Fever Pulmonary: Denies: Shortness of Breath Cardiovascular: Denies: Chest Pain Gastrointestinal: Denies: Abdominal Pain - Patient Data Vitals - Most Recent: Last Vital Signs Temp 36.9 C 09/03/17 08:22 Pulse 65 09/03/17 08:22 Resp 20 09/03/17 08:22 BP 134/70 09/03/17 08:22 Pulse Ox 99 09/03/17 08:22 Weight - Most Recent: 90.446 kg I&O - Last 24 hours: Intake & Output 09/02/17 09/03/17 09/03/17 22:59 06:59 14:59 Intake Total 350 Output Total 300 Balance 50 Lab Results - Last 24 hrs: Laboratory Results - last 24 hr 09/03/17 Range/Units 06:16 PT 17.0 H (9.0-12.0) SEC INR 1.7 H (0.9-1.2) Med Orders - Current: Current Medications Albuterol (Proventil Hfa) 0 gm INH QID PRN PRN Reason: breathing Amlodipine Besylate (Norvasc) 2.5 mg PO DAILY [facility] Last Admin: 09/02/17 09:11 Dose: 2.5 mg Carvedilol (Coreg) 18.75 mg PO BIDMEALS [facility] Last Admin: 09/02/17 17:59 Dose: 18.75 mg Cholecalciferol (Vitamin D3) 2,000 units PO DAILY [facility] Last Admin: 09/02/17 08:57 Dose: 2,000 units Docusate Sodium (Colace) 100 mg PO BID [facility] Last Admin: 09/02/17 21:38 Dose: 100 mg Finasteride (Proscar) 5 mg PO BEDTIME [facility] Last Admin: 09/02/17 21:38 Dose: 5 mg Folic Acid (Folic Acid) 1 mg PO DAILY [facility] Last Admin: 09/02/17 08:56 Dose: 1 mg Furosemide (Lasix) 20 mg PO DAILY [facility] Last Admin: 09/02/17 08:56 Dose: 20 mg Lisinopril (Prinivil) 10 mg PO DAILY [facility] Last Admin: 09/02/17 09:12 Dose: 10 mg Lorazepam (Ativan) 0.5 mg PO Q6HR PRN PRN Reason: Anxiety Last Admin: 09/02/17 21:39 Dose: 0.5 mg Methotrexate (Methotrexate) 7.5 mg PO Sa@0800 [facility] Last Admin: 08/31/17 08:43 Dose: 7.5 mg Multivitamins/Minerals (I-Anoop) 1 each PO DAILY [facility] Last Admin: 09/02/17 08:56 Dose: 1 each Acetaminophen 650 Mg Er TabPt's Own Med 0 each PO Q8HR PRN PRN Reason: Pain Last Admin: 09/03/17 08:03 Dose: 1 each Polyethylene Glycol (Miralax) 17 gm PO DAILY [facility] Last Admin: 09/02/17 08:54 Dose: 17 gm Simvastatin (Zocor) 20 mg PO BEDTIME [facility] Last Admin: 09/02/17 21:39 Dose: 20 mg Tamsulosin HCl (Flomax) 0.4 mg PO BEDTIME [facility] Last Admin: 09/02/17 21:38 Dose: 0.4 mg Warfarin Sodium (Pharmacy To Dose - Warfarin) 1 dose .XX ASDIRECTED [facility] Discontinued Medications Acetaminophen (Tylenol) 650 mg PO Q8HR PRN PRN Reason: Pain Last Admin: 08/18/17 08:26 Dose: 650 mg Artificial Tears (Refresh Celluvisc) 1 each EYELF Q2H [facility] Stop: 09/01/17 21:30 Last Admin: 09/02/17 00:04 Dose: Not Given Heparin Sodium (Porcine) (Heparin Sodium) 5,000 units SUBCUT Q12HR [facility] Last Admin: 08/21/17 09:07 Dose: Not Given Non-Formulary Medication (Nf Drug) 0 each PO ONETIME ONE Stop: 08/22/17 14:01 Last Admin: 08/22/17 14:03 Dose: Not Given Warfarin Sodium (Coumadin) 1.25 mg PO DAILY@1400 [facility] Last Admin: 08/18/17 13:57 Dose: 1.25 mg Warfarin Sodium (Coumadin) 5 mg PO ONETIME ONE Stop: 08/19/17 14:01 Last Admin: 08/19/17 13:09 Dose: 5 mg Warfarin Sodium (Coumadin) 5 mg PO ONETIME ONE Stop: 08/20/17 14:01 Last Admin: 08/20/17 13:53 Dose: 5 mg Warfarin Sodium (Coumadin) 5 mg PO ONETIME ONE Stop: 08/21/17 14:01 Last Admin: 08/21/17 13:58 Dose: 5 mg Warfarin Sodium (Coumadin) 2.5 mg PO DAILY@1400 [facility] Stop: 08/25/17 14:01 Last Admin: 08/25/17 16:51 Dose: 2.5 mg Warfarin Sodium (Coumadin) 2.5 mg PO ONETIME ONE Stop: 08/26/17 14:01 Last Admin: 08/26/17 15:32 Dose: 2.5 mg Warfarin Sodium (Coumadin) 2.5 mg PO ONETIME ONE Stop: 08/27/17 14:01 Last Admin: 08/27/17 13:41 Dose: 2.5 mg Warfarin Sodium (Coumadin) 1 mg PO ONETIME ONE Stop: 08/28/17 14:01 Last Admin: 08/28/17 14:21 Dose: 1 mg Warfarin Sodium (Coumadin) 0.5 mg PO ONETIME ONE Stop: 08/29/17 14:01 Last Admin: 08/29/17 14:27 Dose: 0.5 mg Warfarin Sodium (Coumadin) 0.5 mg PO ONETIME ONE Stop: 08/30/17 14:01 Last Admin: 08/30/17 15:45 Dose: 0.5 mg Warfarin Sodium (Coumadin) 0.5 mg PO DAILY@1400 [facility] Stop: 08/31/17 14:01 Last Admin: 08/31/17 13:39 Dose: 0.5 mg Warfarin Sodium (Coumadin) 0.5 mg PO DAILY@1400 [facility] Stop: 09/01/17 14:01 Last Admin: 09/01/17 13:31 Dose: 0.5 mg Warfarin Sodium (Coumadin) 1 mg PO ONETIME ONE Stop: 09/02/17 14:01 Last Admin: 09/02/17 13:18 Dose: 1 mg - Exam Quality Assessment: Denies: Supplemental Oxygen General: Reports: Alert, Oriented Lungs: Reports: Clear to Auscultation, Normal Respiratory Effort Cardiovascular: Reports: Regular Rate, Regular Rhythm Extremities: Pedal Edema Skin: Reports: Warm, Dry Neurological: Reports: No New Focal Deficit
[2017-09-03] MEDS: Carvedilol 6.25 MG Tab PO SCH (09:18)
[2017-09-03] MEDS: Folic Acid 1 MG Tab PO SCH (09:18)
[2017-09-03] MEDS: amLODIPine 5 MG Tab PO SCH (09:19)
[2017-09-03] MEDS: Furosemide 20 MG Tab PO SCH (09:19)
[2017-09-03] MEDS: Polyethylene Glycol 3350 Powder 17 GM Packet PO SCH (09:19)
[2017-09-03] MEDS: Docusate Sodium 100 MG Cap PO SCH (10:13)
== END 2017-09-03 11:00 | disposition home or self-care (01) | DRG 559 ==
LOC: DL.MS 08-15 13:22 → UNDOADMIN 08-15 13:22 → DL.MS 08-15 15:29
PROVIDERS: ADMIT Student in an Organized Health Care Education/Training Program; ATTEND Student in an Organized Health Care Education/Training Program
DX: S72.001D Fracture of unspecified part of neck of right femur, subsequent encounter for closed fracture with routine healing (principal); I26.99 Other pulmonary embolism without acute cor pulmonale; I82.409 Acute embolism and thrombosis of unspecified deep veins of unspecified lower extremity; R53.1 Weakness; W19.XXXD Unspecified fall, subsequent encounter; I10 Essential (primary) hypertension; I48.0 Paroxysmal atrial fibrillation; J44.9 Chronic obstructive pulmonary disease, unspecified; H54.7 Unspecified visual loss; H91.90 Unspecified hearing loss, unspecified ear; E78.00 Pure hypercholesterolemia, unspecified; R01.1 Cardiac murmur, unspecified; I71.2 Thoracic aortic aneurysm, without rupture; K59.00 Constipation, unspecified; M06.9 Rheumatoid arthritis, unspecified; Z85.828 Personal history of other malignant neoplasm of skin; Z79.899 Other long term (current) drug therapy; Z86.718 Personal history of other venous thrombosis and embolism; Z86.711 Personal history of pulmonary embolism; Z79.01 Long term (current) use of anticoagulants; Z79.891 Long term (current) use of opiate analgesic; Z87.891 Personal history of nicotine dependence; Z28.21 Immunization not carried out because of patient refusal
CPT/HCPCS: 36415; 51798; 80048; 85025; 85610; 85730; 97110-GO; 97110-GP; 97116-GP; 97162-GP; 97165-GO; 97530-GO; 97535-GO; A9270-GY; J1644; J8610

== ENCOUNTER 2018-08-11 12:47 | Emergency (ER) | payer MEDICARE, BC ==
[2018-08-11] MEDS ORDERED: Aspirin 81 MG Tab.Chew PO ONE (12:54)
--- NOTE | 2018-08-11 12:54 | EDM.PDOC ---
ED HPI GENERAL MEDICAL PROBLEM - General Chief Complaint: Cardiovascular Problem Stated Complaint: FROM CLINIC Time Seen by Provider: 08/11/18 12:53 Source of Information: Reports: Patient, Family, Old Records, Provider (Argenis Morgan NP), RN, RN Notes Reviewed History Limitations: Reports: No Limitations - History of Present Illness INITIAL COMMENTS - FREE TEXT/NARRATIVE: Pt sent from [facility] by Argenis Morgan NP by wheelchair with report of shortness of breath with an elevated troponin of 0.29. Pt was seen in clinic on 08/05/18 for a cough and had a negative troponin at that time. Pt states that he began to feel worse 2 days ago with shortness of breath and generalized weakness. Denies fever, chills, chest pain, syncope, edema, orthopnea, wheezing , or palpitations. Admits to some white sputum production that was blood tinged this morning. 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 (see below) - Related Data Allergies Allergy/AdvReac Type Severity Reaction Status Date / Time No Known Allergies Allergy Verified 08/11/18 13:13 Home Meds: Home Meds Acetaminophen [Arthritis Pain Relief] 650 mg PO Q8HR PRN 08/10/17 [History] Albuterol [Proair HFA] 2 puff INH QID PRN 08/10/17 [History] Carvedilol 18.75 mg PO BID 08/10/17 [History] Cholecalciferol (Vitamin D3) [Vitamin D3] 2,000 units PO DAILY 08/10/17 [History ] Docusate Sodium [Colace] 100 mg PO BID 08/10/17 [History] Folic Acid 1 mg PO DAILY 08/10/17 [History] Furosemide 20 mg PO DAILY 08/10/17 [History] LORazepam 0.5 mg PO Q6HR PRN 08/10/17 [History] Lisinopril 10 mg PO DAILY 08/10/17 [History] Lutein/Min/Vit C/Vit E Acetate [Ocuvite Lutein] 1 cap PO DAILY 08/10/17 [History ] Methotrexate Sodium [Methotrexate] 7.5 mg PO .Saturday08/10/17 [History] Simvastatin [Zocor] 20 mg PO DAILY 08/10/17 [History] Warfarin Sodium 1.25 mg PO DAILY 08/10/17 [History] amLODIPine [Norvasc] 2.5 mg PO DAILY 08/10/17 [History] oxyCODONE 5 mg PO Q4HR PRN 08/15/17 [History] Tamsulosin [Flomax] 0.4 mg PO BEDTIME #30 cap.er 09/03/17 [Rx] Past Medical History HEENT History: Reports: Hard of Hearing, Impaired Vision, Other (See Below) Other HEENT History: gets shots in eyes to prevent Glaucoma. Hearing aid bilat. , mostly wears to left ear. Wears glasses Cardiovascular History: Reports: Afib, Aneurysm, Blood Clots/VTE/DVT, CAD, Heart Murmur, High Cholesterol, Hypertension, Other (See Below) Other Cardiovascular History: Thoracic Aneurysm. Hx of Clots to the lung and left leg. states he has some tingling in his feet bilaterally which was present prior to hip surgery and fall. Respiratory History: Reports: COPD, Pneumonia, Recurrent, SOB Gastrointestinal History: Reports: Other (See Below) Other Gastrointestinal History: sometimes constipation and uses MOM Genitourinary History: Reports: None Musculoskeletal History: Reports: RA Neurological History: Reports: Other (See Below) Other Neuro History: "? Slight Stroke because I'm stiff on my left side" Psychiatric History: Reports: None Endocrine/Metabolic History: Reports: None Hematologic History: Reports: Anticoagulation Therapy Immunologic History: Reports: None Oncologic (Cancer) History: Reports: Other (See Below) Other Oncologic History: skin Ca to face long time ago Dermatologic History: Reports: None - Infectious Disease History Infectious Disease History: Reports: None - Past Surgical History HEENT Surgical History: Reports: Cataract Surgery, Other (See Below) Other HEENT Surgeries/Procedures: Had bilaeral cataract surgery at age 53. Cardiovascular Surgical History: Reports: None GI Surgical History: Reports: None Male Surgical History: Reports: Circumcision, Other (See Below) Other Male Surgeries/Procedures: Circumcision on August 12 2017 Endocrine Surgical History: Reports: None Neurological Surgical History: Reports: None Musculoskeletal Surgical History: Reports: None Social & Family History - Family History Family Medical History: Noncontributory Endocrine/Metabolic: Reports: Diabetes, Gestational - Tobacco Use Smoking Status *Q: Former Smoker - Caffeine Use Caffeine Use: Reports: Coffee, Soda - Living Situation & Occupation Living situation: Reports: , with Family Occupation: Retired ED ROS GENERAL - Review of Systems Review Of Systems: ROS reveals no pertinent complaints other than HPI. ED EXAM, GENERAL - Physical Exam Exam: See Below Exam Limited By: No Limitations General Appearance: Alert, WD/WN, No Apparent Distress Eye Exam: Bilateral Eye: Normal Inspection Nose: Normal Inspection, No Blood Throat/Mouth: Normal Inspection, Normal Lips, Normal Voice, No Airway Compromise Head: Atraumatic, Normocephalic Neck: Normal Inspection, Supple, Non-Tender, Full Range of Motion Respiratory/Chest: No Respiratory Distress, No Accessory Muscle Use, Decreased Breath Sounds (L>R), Crackles. No: Rhonchi, Wheezing Cardiovascular: No Edema, No JVD, Irregularly Irregular GI/Abdominal: Normal Bowel Sounds, Soft, Non-Tender, No Distention, No Abnormal Bruit. No: Guarding, Rigid, Rebound (Male) Exam: Deferred Rectal (Males) Exam: Deferred Back Exam: Normal Inspection Extremities: Normal Inspection, Normal Range of Motion, Non-Tender, Normal Capillary Refill, No Pedal Edema Neurological: Alert, Oriented, CN II-XII Intact, Normal Cognition, No Motor/ Sensory Deficits Psychiatric: Normal Affect, Normal Mood Skin Exam: Warm, Dry, Intact, Normal Color, No Rash EKG INTERPRETATION EKG Date: 08/11/18 Time: 13:09 Rhythm: A-Fib Rate (Beats/Min): 96 [place]: Normal P-Wave: Absent QRS: RBBB (and LAFB, Ventricular bigeminy) ST-T: Depressed (lateral) QT: Normal Comparison: Change From Previous EKG (Acute lateral ischemic changes) Course - Vital Signs Last Recorded V/S: Last Vital Signs Temp 36.9 C 08/11/18 13:08 Pulse 98 08/11/18 13:08 Resp 27 H 08/11/18 13:08 BP 114/67 08/11/18 13:08 Pulse Ox 94 L 08/11/18 13:08 - Orders/Labs/Meds Orders: Active Orders 24 hr Category Date Time Status EKG 12 Lead [EKG Documentation Completion] [RC] STAT Care 08/11/18 12:56 Active Peripheral IV Care [RC] . DIRECTED Care 08/11/18 12:57 Active CULTURE BLOOD [BC] Stat Lab 08/11/18 13:27 Ordered Heparin Sodium/0.45% NaCl [Heparin 25,000 Units in 1/2 Med 08/11/18 13:45 Ordered NS 500 ML] 25,000 units in 500 ml IV TITRATE Sodium Chloride 0.9% [Saline Flush] Med 08/11/18 12:56 Active 10 ml FLUSH ASDIRECTED PRN cefTRIAXone [Rocephin] 1 gm Med 08/11/18 13:28 Active Sodium Chloride 0.9% [Normal Saline] 50 ml IV ONETIME Peripheral IV Insertion Adult [OM.PC] Stat Oth 08/11/18 12:56 Ordered Medication Orders Ceftriaxone Sodium 1 gm/ (Sodium Chloride) 50 mls @ 50 mls/hr IV ONETIME ONE Stop: 08/11/18 14:27 Last Admin: 08/11/18 13:40 Dose: 50 mls/hr Heparin Sodium/Sodium Chloride (Heparin 25,000 Units In 1/2 Ns 500 Ml) 25,000 units in 500 mls @ 20.793 mls/hr IV TITRATE RERE; Protocol Last Admin: 08/11/18 13:49 Dose: 12 units/kg/hr, 20.793 mls/hr Sodium Chloride (Saline Flush) 10 ml FLUSH ASDIRECTED PRN PRN Reason: Keep Vein Open Last Admin: 08/11/18 13:08 Dose: 10 ml Labs: Laboratory Tests 08/11/18 08/11/18 08/11/18 Range/Units 12:59 12:59 12:59 WBC 9.3 (5.0-10.0) 10^3/uL RBC 4.50 L (4.6-6.2) 10^6/uL Hgb 10.0 L (14.0-18.0) g/dL Hct 32.5 L (40.0-54.0) % MCV 72.2 L D (80-100) fL MCH 22.2 L (27.0-34.0) pg MCHC 30.8 L (33.0-35.0) g/dL Plt Count 356 D (150-450) 10^3/uL Neut % (Auto) 69.8 (42.2-75.2) % Lymph % (Auto) 18.4 L (20.5-50.1) % [place] % (Auto) 11.5 H (2-8) % Eos % (Auto) 0.2 L (1.0-3.0) % Baso % (Auto) 0.1 (0.0-1.0) % PT 14.3 H (9.0-12.0) SEC INR 1.5 H (0.9-1.2) APTT 27.2 (22.0-34.0) SEC Sodium 139 (135-145) mmol/L Potassium 3.2 L (3.6-5.0) mmol/L Chloride 101 (101-111) mmol/L Carbon Dioxide 25.0 (21.0-31.0) mmol/L Anion Gap 16.2 BUN 20 H (7-18) mg/dL Creatinine 1.1 (0.6-1.3) mg/dL Est Cr Clr Drug Dosing 52.29 mL/min Estimated GFR (MDRD) > 60 BUN/Creatinine Ratio 18.18 Glucose 117 H (74-105) mg/dL Calcium 8.4 (8.4-10.2) mg/dl Total Bilirubin 1.2 H (0.2-1.0) mg/dL AST 20 (10-42) IU/L ALT 9 L (10-60) IU/L Alkaline Phosphatase 57 (42-121) IU/L Creatine Kinase (26-174) IU/L Creatine Kinase Index (0-2.4) % CK-MB (CK-2) (0.4-4.7) ng/mL Troponin I 0.22 H* (0.00-0.02) ng/ml B-Natriuretic Peptide 917 H (0-100) pg/ml Total Protein 7.2 (6.7-8.2) g/dl Albumin 3.2 (3.2-5.5) g/dl Globulin 4.0 Albumin/Globulin Ratio 0.80 Lipase 33 (22-51) U/L 08/11/18 Range/Units 12:59 WBC (5.0-10.0) 10^3/uL RBC (4.6-6.2) 10^6/uL Hgb (14.0-18.0) g/dL Hct (40.0-54.0) % MCV (80-100) fL MCH (27.0-34.0) pg MCHC (33.0-35.0) g/dL Plt Count (150-450) 10^3/uL Neut % (Auto) (42.2-75.2) % Lymph % (Auto) (20.5-50.1) % [place] % (Auto) (2-8) % Eos % (Auto) (1.0-3.0) % Baso % (Auto) (0.0-1.0) % PT (9.0-12.0) SEC INR (0.9-1.2) APTT (22.0-34.0) SEC Sodium (135-145) mmol/L Potassium (3.6-5.0) mmol/L Chloride (101-111) mmol/L Carbon Dioxide (21.0-31.0) mmol/L Anion Gap BUN (7-18) mg/dL Creatinine (0.6-1.3) mg/dL Est Cr Clr Drug Dosing mL/min Estimated GFR (MDRD) BUN/Creatinine Ratio Glucose (74-105) mg/dL Calcium (8.4-10.2) mg/dl Total Bilirubin (0.2-1.0) mg/dL AST (10-42) IU/L ALT (10-60) IU/L Alkaline Phosphatase (42-121) IU/L Creatine Kinase 56 (26-174) IU/L Creatine Kinase Index 4.1 H (0-2.4) % CK-MB (CK-2) 2.30 (0.4-4.7) ng/mL Troponin I (0.00-0.02) ng/ml B-Natriuretic Peptide (0-100) pg/ml Total Protein (6.7-8.2) g/dl Albumin (3.2-5.5) g/dl Globulin Albumin/Globulin Ratio Lipase (22-51) U/L Meds: Medications Generic Name Dose Route Start Last Admin Trade Name Freq PRN Reason Stop Dose Admin Ceftriaxone Sodium 1 gm/ 50 mls @ 50 mls/hr 08/11/18 13:28 08/11/18 13:40 Sodium Chloride IV 08/11/18 14:27 50 mls/hr ONETIME ONE Administration Heparin Sodium/Sodium Chloride 25,000 units in 500 mls @ 20.793 mls/hr 13:45 08/11/18 13:49 Heparin 25,000 Units In 1/2 Ns 500 Ml IV 12 units/kg/hr TITRATE RERE 20.793 mls/hr Administration Protocol 12 UNITS/KG/HR Sodium Chloride 10 ml 08/11/18 12:56 08/11/18 13:08 Saline Flush FLUSH 10 ml ASDIRECTED PRN Administration Keep Vein Open Discontinued Medications Generic Name Dose Route Start Last Admin Trade Name Freq PRN Reason Stop Dose Admin Aspirin 324 mg 08/11/18 12:54 08/11/18 13:04 Aspirin PO 08/11/18 12:55 324 mg ONETIME ONE Administration Heparin Sodium (Porcine) 4,000 units 08/11/18 13:18 08/11/18 13:36 Heparin Sodium IVPUSH 08/11/18 13:19 4,000 units .BOLUS ONE Administration - Radiology Interpretation Free Text/Narrative:: CXR: new LLL consolidation, chronic cardiomegaly per Rad. report. Departure - Departure Time of Disposition: 13:44 Disposition: DC/Tfer to Acute Hospital 02 Reason for Transfer *Q: Primary PCI Indicated Condition: Serious Clinical Impression: Non-ST elevated myocardial infarction (non-STEMI), Paroxysmal atrial fibrillation, Left lower lobe pulmonary infiltrate, History of CHF (congestive heart failure), History of COPD Forms: ED Department Discharge - My Orders Last 24 Hours: My Active Orders 08/11/18 12:56 EKG 12 Lead [EKG Documentation Completion] [RC] STAT Sodium Chloride 0.9% [Saline Flush] 10 ml FLUSH ASDIRECTED PRN Peripheral IV Insertion Adult [OM.PC] Stat 08/11/18 12:57 Peripheral IV Care [RC] . DIRECTED 08/11/18 13:27 CULTURE BLOOD [BC] Stat 08/11/18 13:28 cefTRIAXone [Rocephin] 1 gm Sodium Chloride 0.9% [Normal Saline] 50 ml IV ONETIME 08/11/18 13:45 Heparin Sodium/0.45% NaCl [Heparin 25,000 Units in 1/2 NS 500 ML] 25,000 units in 500 ml IV TITRATE - Assessment/Plan Last 24 Hours: My Active Orders 08/11/18 12:56 EKG 12 Lead [EKG Documentation Completion] [RC] STAT Sodium Chloride 0.9% [Saline Flush] 10 ml FLUSH ASDIRECTED PRN Peripheral IV Insertion Adult [OM.PC] Stat 08/11/18 12:57 Peripheral IV Care [RC] . DIRECTED 08/11/18 13:27 CULTURE BLOOD [BC] Stat 08/11/18 13:28 cefTRIAXone [Rocephin] 1 gm Sodium Chloride 0.9% [Normal Saline] 50 ml IV ONETIME 08/11/18 13:45 Heparin Sodium/0.45% NaCl [Heparin 25,000 Units in 1/2 NS 500 ML] 25,000 units in 500 ml IV TITRATE
[2018-08-11] MEDS ORDERED: Sodium Chloride 0.9% 10 ML Syringe FLUSH PRN (12:56)
[2018-08-11] MEDS ORDERED: Heparin Sodium 5,000 Units/ML Vial IVPUSH ONE (13:18)
--- NOTE | 2018-08-11 13:22 | CR ---
Clinical history: 83-year-old male with chest pain reported to have "COPD/aneurysmal descending thoracic aorta" on CT exam 03 September 2017 and "lung cordero/pleural margins clear" plain chest radiograph 30 July 2012. Follow-up evaluation please. Interpretation: Upright AP portable chest film abnormal. Asymmetric dense new pneumonic like consolidation left lower lobe (infiltrate and/or effusion with underlying atelectasis) Note: Chronic cardiomegaly but the left lower lobe consolidation is new since previous exam 07 August 2012. Clinical aspiration? Pulmonary infarct? No new signs of heart failure i.e. no cephalization of flow and the right lung/pleural space are clear. No new lung mass or hilar lymphadenopathy.
[2018-08-11] MEDS ORDERED: cefTRIAXone 1 GM in Sodium Chloride 0.9% 50 ML IV ONE (13:28)
[2018-08-11 13:29] LABS: ANION GAP 16.2; CHLORIDE,CL 101 mmol/L (101-111); SODIUM,NA 139 mmol/L (135-145)
[2018-08-11] MEDS ORDERED: Heparin Sodium/0.45% NaCl 25,000 UNITS/500 ML BAG IV SCH (13:45)
== END 2018-08-11 14:33 ==
LOC: DL.ED 12:47
DX: I21.4 Non-ST elevation (NSTEMI) myocardial infarction (principal); I48.0 Paroxysmal atrial fibrillation; I11.0 Hypertensive heart disease with heart failure; I50.9 Heart failure, unspecified; R91.8 Other nonspecific abnormal finding of lung field; J44.9 Chronic obstructive pulmonary disease, unspecified; I25.10 Atherosclerotic heart disease of native coronary artery without angina pectoris; E78.00 Pure hypercholesterolemia, unspecified; Z79.01 Long term (current) use of anticoagulants; Z79.899 Other long term (current) drug therapy
CPT/HCPCS: 36415; 71045; 80053; 82550; 82553; 83690; 83880; 84484; 85025; 85610; 85730; 87040; 93005; 96365; 96368; 96376; 99285; A9270; J0696; J1644; J7050

== ENCOUNTER 2019-01-30 21:40 | Emergency (ER) | payer MEDICARE, BC ==
--- NOTE | 2019-01-30 21:58 | EDM.PDOC ---
ED HPI GENERAL MEDICAL PROBLEM - General Chief Complaint: Neuro Symptoms/Deficits Stated Complaint: AMBULANCE Time Seen by Provider: 01/30/19 21:57 Source of Information: Reports: EMS, Family History Limitations: Reports: Altered Mental Status - History of Present Illness INITIAL COMMENTS - FREE TEXT/NARRATIVE: EMS state family told them pt was normal about 2 1/2 hours ago, then about 9pm started coughing and noticed pt unable to answer and right face drooped. - Related Data Allergies Allergy/AdvReac Type Severity Reaction Status Date / Time No Known Allergies Allergy Verified 08/11/18 13:13 Home Meds: Home Meds Albuterol [Proair HFA] 2 puff INH QID PRN 08/10/17 [History] Carvedilol 18.75 mg PO BID 08/10/17 [History] Cholecalciferol (Vitamin D3) [Vitamin D3] 2,000 units PO DAILY 08/10/17 [History ] Docusate Sodium [Colace] 100 mg PO BID 08/10/17 [History] Furosemide 20 mg PO DAILY 08/10/17 [History] LORazepam 0.5 mg PO Q6HR PRN 08/10/17 [History] Lisinopril 10 mg PO DAILY 08/10/17 [History] Simvastatin [Zocor] 20 mg PO DAILY 08/10/17 [History] Warfarin Sodium 1.25 mg PO DAILY 08/10/17 [History] amLODIPine [Norvasc] 2.5 mg PO DAILY 08/10/17 [History] Tamsulosin [Flomax] 0.4 mg PO BEDTIME #30 cap.er 09/03/17 [Rx] Finasteride [Proscar] 5 mg PO DAILY 01/30/19 [History] Losartan Potassium 50 mg PO DAILY 01/30/19 [History] Ranitidine [Zantac] 150 mg PO BID 01/30/19 [History] Spironolactone [Aldactone] 25 mg PO DAILY 01/30/19 [History] Past Medical History HEENT History: Reports: Hard of Hearing, Impaired Vision, Other (See Below) Other HEENT History: gets shots in eyes to prevent Glaucoma. Hearing aid bilat. , mostly wears to left ear. Wears glasses Cardiovascular History: Reports: Afib, Aneurysm, Blood Clots/VTE/DVT, CAD, Heart Murmur, High Cholesterol, Hypertension, Other (See Below) Other Cardiovascular History: Thoracic Aneurysm. Hx of Clots to the lung and left leg. states he has some tingling in his feet bilaterally which was present prior to hip surgery and fall. Respiratory History: Reports: COPD, Pneumonia, Recurrent, SOB Gastrointestinal History: Reports: Other (See Below) Other Gastrointestinal History: sometimes constipation and uses MOM Genitourinary History: Reports: None Musculoskeletal History: Reports: RA Other Musculoskeletal History: right closed hip fracture 08/2017 Neurological History: Reports: Other (See Below) Other Neuro History: "? Slight Stroke because I'm stiff on my left side" Psychiatric History: Reports: None Endocrine/Metabolic History: Reports: None Hematologic History: Reports: Anticoagulation Therapy Immunologic History: Reports: None Oncologic (Cancer) History: Reports: Other (See Below) Other Oncologic History: skin Ca to face long time ago Dermatologic History: Reports: None - Infectious Disease History Infectious Disease History: Reports: None Other Infectious Disease History: c-dif 2006 - Past Surgical History HEENT Surgical History: Reports: Cataract Surgery, Other (See Below) Other HEENT Surgeries/Procedures: Had bilaeral cataract surgery at age 53. Cardiovascular Surgical History: Reports: None GI Surgical History: Reports: None Male Surgical History: Reports: Circumcision, Other (See Below) Other Male Surgeries/Procedures: Circumcision on August 12 2017 Endocrine Surgical History: Reports: None Neurological Surgical History: Reports: None Musculoskeletal Surgical History: Reports: None Social & Family History - Family History Family Medical History: Noncontributory Endocrine/Metabolic: Reports: Diabetes, Gestational - Caffeine Use Caffeine Use: Reports: Coffee, Soda - Living Situation & Occupation Living situation: Reports: , with Family Occupation: Retired ED ROS GENERAL - Review of Systems Review Of Systems: ROS reveals no pertinent complaints other than HPI. ED EXAM, NEURO - Physical Exam Exam: See Below Exam Limited By: No Limitations General Appearance: Alert, Other (unable to answer) Eye Exam: Bilateral Eye: PERRL (pupils ess ER @ 4mm) Ears: Hearing Grossly Normal Throat/Mouth: Normal Voice, No Airway Compromise Head Exam: Atraumatic Neck: Non-Tender, Full Range of Motion Respiratory/Chest: No Respiratory Distress Cardiovascular: Regular Rate, Rhythm GI/Abdominal: Soft, Non-Tender Neurological: Alert, Other (right face droop, no right arm activity) Extremities: Other (no right arm activity, legs and left arm wnl) Psychiatric: Normal Affect, Normal Mood Skin Exam: Warm, Dry, Normal Color Course - Vital Signs Last Recorded V/S: Last Vital Signs Temp 36.9 C 01/30/19 22:04 Pulse 103 H 01/30/19 22:04 Resp 18 01/30/19 22:04 BP 143/92 H 01/30/19 22:04 Pulse Ox 97 01/30/19 22:04 - Orders/Labs/Meds Orders: Active Orders 24 hr Category Date Time Status Blood Glucose Check, Bedside [RC] ONETIME Care 01/30/19 21:44 Active COMPREHENSIVE METABOLIC PN,CMP [CHEM] Stat Lab 01/30/19 21:44 Ordered INR,PT,PROTHROMBIN TIME [COAG] Stat Lab 01/30/19 21:49 Ordered TROPONIN I [CHEM] Stat Lab 01/30/19 21:44 Ordered Labs: Laboratory Tests 01/30/19 01/30/19 01/30/19 Range/Units 22:00 22:00 22:01 WBC 7.3 (5.0-10.0) 10^3/uL RBC 5.03 (4.6-6.2) 10^6/uL Hgb 14.6 D (14.0-18.0) g/dL Hct 44.0 (40.0-54.0) % MCV 87.5 D (80-100) fL MCH 29.0 (27.0-34.0) pg MCHC 33.2 (33.0-35.0) g/dL Plt Count 226 D (150-450) 10^3/uL Neut % (Auto) 44.5 (42.2-75.2) % Lymph % (Auto) 34.6 (20.5-50.1) % [place] % (Auto) 13.7 H (2-8) % Eos % (Auto) 7.1 H (1.0-3.0) % Baso % (Auto) 0.1 (0.0-1.0) % Sodium 141 (135-145) mmol/L Potassium 5.0 D (3.6-5.0) mmol/L Chloride 106 (101-111) mmol/L Carbon Dioxide 26.0 (21.0-31.0) mmol/L Anion Gap 14.0 BUN 20 H (7-18) mg/dL Creatinine 1.1 (0.6-1.3) mg/dL Est Cr Clr Drug Dosing TNP Estimated GFR (MDRD) > 60 BUN/Creatinine Ratio 18.18 Glucose 115 H (74-105) mg/dL POC Glucose 107 (83-110) mg/dl Calcium 9.1 (8.4-10.2) mg/dl Total Bilirubin 0.7 (0.2-1.0) mg/dL AST 19 (10-42) IU/L ALT 13 (10-60) IU/L Alkaline Phosphatase 69 (42-121) IU/L Total Protein 6.9 (6.7-8.2) g/dl Albumin 3.3 (3.2-5.5) g/dl Globulin 3.6 Albumin/Globulin Ratio 0.92 - Re-Assessments/Exams Free Text/Narrative Re-Assessment/Exam: 01/30/19 22:[address] Malcolm Cha who rec' discuss with family re' interventional procedure [place]bolectomy in [place]. spouse states pt would not like such risk and family state pt was to have some procedure done but after considering his age and medical issues pt decline. case discussed with Dr Gonzalez @ who kindly accepted pt. Departure - Departure Time of Disposition: 22:36 Disposition: DC/Tfer to Acute Hospital 02 Condition: Fair Clinical Impression: Stroke Qualifiers: CVA mechanism: unspecified Qualified Code(s): I63.9 - Cerebral infarction, unspecified - Discharge Information Forms: Interfacility Transfer EMTALA - My Orders Last 24 Hours: My Active Orders 01/30/19 21:44 Blood Glucose Check, Bedside [RC] ONETIME COMPREHENSIVE METABOLIC PN,CMP [CHEM] Stat TROPONIN I [CHEM] Stat 01/30/19 21:49 INR,PT,PROTHROMBIN TIME [COAG] Stat - Assessment/Plan Last 24 Hours: My Active Orders 01/30/19 21:44 Blood Glucose Check, Bedside [RC] ONETIME COMPREHENSIVE METABOLIC PN,CMP [CHEM] Stat TROPONIN I [CHEM] Stat 01/30/19 21:49 INR,PT,PROTHROMBIN TIME [COAG] Stat
[2019-01-30 22:25] LABS: CHLORIDE,CL 106 mmol/L (101-111); SODIUM,NA 141 mmol/L (135-145)
== END 2019-01-30 22:57 ==
LOC: DL.ED 21:40
DX: I69.392 Facial weakness following cerebral infarction (principal); C76.0 Malignant neoplasm of head, face and neck; I10 Essential (primary) hypertension; J44.9 Chronic obstructive pulmonary disease, unspecified; E78.00 Pure hypercholesterolemia, unspecified; Z79.899 Other long term (current) drug therapy; Z79.01 Long term (current) use of anticoagulants; Z86.718 Personal history of other venous thrombosis and embolism
CPT/HCPCS: 36415; 70450; 80053; 82962; 84484; 85025; 85610; 99285-25